=== PATIENT | male | born 1965 | race Caucasian/White ===

== ENCOUNTER 2019-07-02 07:46 | Inpatient (IN) | payer MEDICAID, OTHER ==
[~2019-07-02] VITALS: Ht 160 cm; Wt 64.9 kg
[2019-07-02 07:50] VITALS: BP 152/64
--- NOTE | 2019-07-02 07:50 | NUR ---
Patient ambulated to bed 3. RN evaluating patient at bedside.
--- NOTE | 2019-07-02 08:02 | NUR ---
C/O CONSTANT MID CHEST PAIN X LAST NIGHT. ASSOCIATED WITH SOB, DENIES NAUSEA, VOMITING. STATES HE HAD A SIMILAR EPISODE LAST WEEK. PAIN 11/12. PT CONNECTED TO BEDSIDE MONITOR. BEDRAILS X1, BED LOCKED, AND LOW MED HX: ESRD WITH PERITONIAL DIALYSIS. ANURIA X 3 YEARS. HTN, HYPERCHOL
--- NOTE | 2019-07-02 08:04 | NUR ---
Dr. Arteaga is evaluating the patient at bedside.
[2019-07-02] MEDS ORDERED: NITROGLYCERIN 2% 1 GM PKT TP ONE (08:10)
[2019-07-02] MEDS ORDERED: MORPHINE SULFATE 4 MG/ML SYR IVP ONE (08:10)
[2019-07-02] MEDS ORDERED: ASPIRIN 325 MG TAB PO ONE (08:10)
--- NOTE | 2019-07-02 08:21 | NUR ---
CHEST XRAY AT BEDSIDE
--- NOTE | 2019-07-02 08:23 | NUR ---
PT REPORTS THAT HE IS UNABLE TO RECALL RX MEDICATIONS--PT WILL ATTEMPT TO REMEBER THE NAMES AND INFORM STAFF. UNABLE TO COMPLETE MED REC AT THIS TIME.
--- NOTE | 2019-07-02 08:31 | NUR ---
FINISH SPECIALIST AT BEDSIDE
[2019-07-02 08:39] LABS: BASOPHILS % (AUTO) 0.2 % (0.0-2.0); EOSINOPHILS % (AUTO) 0.2 % (0.0-4.0); HEMOGLOBIN 9.2 g/dL (12.0-18.0); LYMPHOCYTES # (AUTO) 0.7 K/uL (2.0-11.5); LYMPHOCYTES % (AUTO) 5.5 % (20.5-51.1); MEAN CORPUSCULAR HEMOGLOBIN 26 pg (27-31); MEAN CORPUSCULAR HGB CONC 32 g/dL (33-37); MEAN CORPUSCULAR VOLUME 83.3 fL (80-94); MONOCYTES # (AUTO) 1.4 K/uL (0.8-1.0); NEUTROPHILS # (AUTO) 11.4 K/uL (1.8-7.7); NEUTROPHILS % (AUTO) 84.1 % (42.2-75.2); PLATELET COUNT (AUTO) 424 K/uL (140-450); RED BLOOD CELL COUNT(AUTO) 3.49 MIL/uL (4.20-6.10); WHITE BLOOD COUNT (AUTO) 13.6 K/uL (4.8-10.8)
[2019-07-02 08:57] LABS: CHOL/HDL RATIO 4.2 (1-4.5)
[2019-07-02 08:58] LABS: ALBUMIN 2.1 g/dL (3.4-5.0); ANION GAP 17.1 (8-16); CARBON DIOXIDE 21.8 mmol/L (21-32); POTASSIUM 3.9 mmol/L (3.5-5.1); TOTAL BILIRUBIN 0.4 mg/dL (0.0-1.0)
[2019-07-02 09:03] LABS: CREATININE 5.3 mg/dL (0.6-1.3)
[2019-07-02 09:15] LABS: CREATINE KINASE MB 0.6 ng/mL (0-3.6)
--- NOTE | 2019-07-02 10:12 | NUR ---
PT RESTING COMFORTABLY IN BED, AROUSABLE BY VOICE. PT STATES PAIN HAS DECREASED TO 3/10.
[2019-07-02] MEDS ORDERED: ONDANSETRON 4 MG/2 ML VIAL IM/IVP PRN (10:35)
[2019-07-02] MEDS ORDERED: LORazepam 2 MG/ML VIAL IM/IVP PRN (10:35)
[2019-07-02] MEDS ORDERED: DOCUSATE SODIUM 100 MG GELCAP PO PRN (10:35)
[2019-07-02] MEDS ORDERED: ZOLPIDEM 5 MG TAB PO PRN (10:35)
[2019-07-02] MEDS ORDERED: NITROGLYCERIN 0.4 MG TAB SL PRN (10:40)
[2019-07-02] MEDS ORDERED: ATORVASTATIN 20 MG TAB PO SCH (10:57)
[2019-07-02 11:18] LABS: PROTHROMBIN TIME 10.9 secs (10.8-13.4)
[2019-07-02 11:19] LABS: CHOL/HDL RATIO 4.2 (1-4.5); FREE T4 (FREE THYROXINE) 1.07 ng/dL (0.76-1.46); MAGNESIUM 2.3 mg/dL (1.8-2.4); PHOSPHORUS 4.8 mg/dL (2.5-4.9); THYROID STIMULATING HORMONE 2.43 uIU/mL (0.34-3.74)
--- NOTE | 2019-07-02 11:50 | NUR ---
Patient will be admitted to care of DR ARMENTA. Admited to TELE. Will go to room 121B. Belongings list completed. Report to JULES SMITH.
--- NOTE | 2019-07-02 11:55 | NUR ---
RECEIVED BEDSIDE REPORT FROM ER NURSE ASHLEY FOR CONTINUATION OF CARE. VITAL SIGNS WNL, PATIENT PLACED ON TELEMETRY FOR CARDIAC MONITORING. PATIENT REPORTS CHEST PAIN, WILL MEDICATE WITH MORPHINE 2MG. ADMISSION ASSESSMENT IN PROCESS OF COMPLETION. EDUCATED ON THE CALL LIGHT, BED IN LOW POSITION, CALL LIGHT ON AND WITHIN REACH. WILL CONTINUE TO MONITOR.
[2019-07-02] MEDS: MORPHINE SULFATE 2 MG/ML SYR IVP PRN ×2 (12:04→17:05)
[2019-07-02] MEDS: METOPROLOL 25 MG TAB PO SCH ×2 (12:22→20:45)
[2019-07-02] MEDS: LISINOPRIL 5 MG TAB PO SCH (12:23)
[2019-07-02] MEDS: ASPIRIN 81 MG TAB.CHEW PO SCH (12:23)
[2019-07-02] MEDS: NACL 0.9% 1,000 ML IV SCH ×2 (12:38→21:59)
[2019-07-02 13:19] VITALS: BP 120/55
--- NOTE | 2019-07-02 13:45 | NUR ---
PATIENT IS RESTING IN BED, EYES CLOSED, OBSERVED CHEST RISE AND FALL. KENYAN SPEAKING, MEDICATED WITH MORPHINE FOR PAIN 11/12, NOW SLEEPING. ATE 10% OF LUNCH, MRSA NARES SWAB COMPLETED AND SENT TO LAB. NS RUNNING AT 100 ML/HR. TOLERATING WELL. BLOOD PRESSURE MEDICATION ADMINISTERED, TOLERATED WELL. CONCERNS ADDRESSED. BED IN LOW POSITION, CALL LIGHT ON AND WITHIN REACH. WILL CONTINUE TO MONITOR.
--- NOTE | 2019-07-02 15:13 | NUR ---
FNS CONSULT FOR MALNUTRITION HAS BEEN RECEIVED BY APRIL. PATIENT WILL BE ASSESSED WITHIN 1-2 DAYS OF ADMISSION. 07/03- TAMMY BRANCH RD
--- NOTE | 2019-07-02 15:21 | NUR ---
USED POPCORN MACHINE OPERATOR PHONE TO EXPLAIN CT ANGIO CHEST TO PATIENT, SERVICE NUMBER: [id number]. PATIENT IS AWARE OF RISKS, EDUCATED ON THE IMPORTANCE OF PROCEDURE. PATIENT SIGNED. CONCERNS ADDRESSED. WILL CONTINUE TO MONITOR.
[2019-07-02 16:00] VITALS: BP 111/61
--- NOTE | 2019-07-02 17:00 | NUR ---
CONTACTED ABIGAIL FROM [facility] REGARDING THE PERITONEAL DIALYSIS ORDERED BY DR. LOZOYA. PER ABIGAIL, SHE WILL BE HERE TONIGHT. NICHOLE ASSIGNED MADE AWARE.
--- NOTE | 2019-07-02 17:05 | NUR ---
LATE ENTRY: MORPHINE 2 MG THAT WAS DOCUMENTED AT 1705 WAS A LATE ENTRY FOR MORPHINE 2 MG THAT WAS ADMINISTERED TO THE PATIENT AT 1545. PHARMACY NOTIFIED, PHARMACY VERIFIED ACCEPTABLE LATE ENTRY. NURSE NOTIFIED. Addendum: 07/02/19 at 1708 by Wei Zuleta RN WRONG PATIENT, DISREGARD
--- NOTE | 2019-07-02 17:15 | NUR ---
PATIENT IS RESTING IN BED, DENIES PAIN AT THIS TIME. NO CONCERNS AT THIS TIME. WILL CONTINUE TO MONITOR.
--- NOTE | 2019-07-02 19:27 | NUR ---
REPORT GIVEN TO NIGHTSHIFT NURSE FOR CONTINUATION OF CARE.
--- NOTE | 2019-07-02 19:30 | NUR ---
ASSUMED CARE OF PATIENT. AWAKE, ALERT AND ORIENTED. NO COMPLAINS. VITAL SIGNS STABLE. CALL LIGHT WITHIN REACH. CARE BOARD UPDATED.
[2019-07-02 20:00] VITALS: BP 98/48
--- NOTE | 2019-07-02 21:00 | NUR ---
BP MEDS HELD, BP-96/48. NO COMPLAINS. CALL LIGHT WITHIN REACH.
--- NOTE | 2019-07-02 22:00 | NUR ---
TO CT DEPARTMENT VIA WHEELCHAIR ACCOMPANIED BY FINANCIAL ACCOUNTING MANAGER.
--- NOTE | 2019-07-02 22:30 | NUR ---
DIALYSIS NURSE AT BEDSIDE TO START PD ORDERED. NO COMPLAINS. CALL LIGHT WITHIN REACH. RESUME DIET ORDERED.
[2019-07-02] MEDS ORDERED: HEPARIN PER PHARMACY MC PRN (22:55)
[2019-07-02] MEDS ORDERED: hePARIN / DEXT 5% PREMIX 250 ML IV SCH (22:55)
--- NOTE | 2019-07-03 00:20 | NUR ---
SPOKE WITH PATERSON PHARMACY, NO HEPARIN BOLUS NEEDED SINCE PATIENT WAS GIVEN HEPARIN 5000 UNITS SUBCUTANEOUS AT 2200. START THE RATE ORDERED PER PHARMACY PROTOCOL.
[2019-07-03] MEDS: hePARIN / DEXT 5% PREMIX 250 ML IV SCH ×2 (00:48→20:50)
[2019-07-03] MEDS: ACETAMINOPHEN 325 MG TAB PO PRN (01:38)
[2019-07-03 01:43] VITALS: BP 108/56
--- NOTE | 2019-07-03 02:03 | NUR ---
TYLENOL GIVEN ORDERED, TEMP-100.5. ASLEEP, EASILY AROUSABLE. NO COMPLAINS. CALL LIGHT WITHIN REACH. PD ONGOING.
--- NOTE | 2019-07-03 04:00 | NUR ---
ASLEEP. NO COMPLAINS. VITAL SIGNS STABLE. AFEBRILE. CALL LIGHT WITHIN REACH. ONGOING PD.
[2019-07-03 05:02] VITALS: BP 96/56
--- NOTE | 2019-07-03 06:57 | NUR ---
LAB AT BEDSIDE TO DRAW BLOOD ORDERED. CALL LIGHT WITHIN REACH. NO COMPLAINS.
--- NOTE | 2019-07-03 07:02 | NUR ---
ENDORSED CARE AT BEDSIDE WITH JULES SMITH, PATIENT IN STABLE CONDITION.
[2019-07-03 07:06] LABS: BASOPHILS % (AUTO) 0.3 % (0.0-2.0); EOSINOPHILS % (AUTO) 0.3 % (0.0-4.0); HEMATOCRIT 24.7 % (36-52); LYMPHOCYTES # (AUTO) 1.3 K/uL (2.0-11.5); LYMPHOCYTES % (AUTO) 10.1 % (20.5-51.1); MEAN CORPUSCULAR HEMOGLOBIN 26 pg (27-31); MEAN CORPUSCULAR HGB CONC 32 g/dL (33-37); MONOCYTES # (AUTO) 1.5 K/uL (0.8-1.0); MONOCYTES % (AUTO) 11.1 % (1.7-9.3); NEUTROPHILS # (AUTO) 10.2 K/uL (1.8-7.7); NEUTROPHILS % (AUTO) 78.2 % (42.2-75.2); PLATELET COUNT (AUTO) 415 K/uL (140-450); RED BLOOD CELL COUNT(AUTO) 3.01 MIL/uL (4.20-6.10); WHITE BLOOD COUNT (AUTO) 13.1 K/uL (4.8-10.8)
--- NOTE | 2019-07-03 07:25 | NUR ---
RECEIVED BEDSIDE SHIFT REPORT FROM GRAIN MIXER NURSE FOR CONTINUATION OF CARE.
[2019-07-03 07:35] LABS: ANION GAP 14.7 (8-16); CARBON DIOXIDE 23.1 mmol/L (21-32); POTASSIUM 4.8 mmol/L (3.5-5.1)
[2019-07-03 07:39] LABS: MAGNESIUM 2.4 mg/dL (1.8-2.4); PHOSPHORUS 6.4 mg/dL (2.5-4.9)
[2019-07-03 08:00] VITALS: BP 115/64
[2019-07-03 08:16] LABS: CREATININE 5.8 mg/dL (0.6-1.3)
--- NOTE | 2019-07-03 08:59 | NUR ---
APTT 57.4, NO CHANGE ON THE HEPARIN DRIP PER PROTOCOL. CHARGE NURSE AWARE. PATIENT IS STABLE, NO SIGNS OF DISTRESS NOTED. PERITONEAL DIALYSIS COMPLETE, APPROXIMATELY 880 ML REMOVED. PATIENT REMAINS AAOX4. WILL CONTINUE TO MONITOR.
[2019-07-03] MEDS: LISINOPRIL 5 MG TAB PO SCH (09:00)
[2019-07-03] MEDS: METOPROLOL 25 MG TAB PO SCH ×2 (09:00→20:17)
[2019-07-03] MEDS: ATORVASTATIN 20 MG TAB PO SCH (09:03)
[2019-07-03] MEDS: ASPIRIN 81 MG TAB.CHEW PO SCH (09:03)
--- NOTE | 2019-07-03 10:44 | NUR ---
SPOKE WITH ELIO-HD NURSE FROM DIALYSIS, NOTIFIED HIM WITH THE PERITONEAL DIALYSIS ORDER. ELIO STATED HE WILL COME BACK TONIGHT TO DO THE DIALYSIS. JULES-SARAH ASSIGNED MADE AWARE.
[2019-07-03] MEDS: CALCIUM ACETATE 667 MG TAB PO SCH ×2 (10:48→17:33)
--- NOTE | 2019-07-03 11:00 | NUR ---
PATIENT IS RESTING IN BED, VISITOR AT BEDSIDE. CALL LIGHT ON AND WITHIN REACH. WILL CONTINUE TO MONITOR. NO SIGNS OF ADVERSE REACTIONS TO HEPARIN DRIP. BED IS IN LOW POSITION. CALL LIGHT ON AND WITHIN REACH. WILL CONTINUE TO MONITOR.
[2019-07-03 12:00] VITALS: BP 119/63
[2019-07-03] MEDS ORDERED: AZITHROMYCIN 250 MG TAB PO SCH (12:00)
[2019-07-03] MEDS: NACL 0.9% 1,000 ML IV SCH (12:36)
--- NOTE | 2019-07-03 14:10 | NUR ---
07/03/19 RD INITIAL ASSESSMENT COMPLETED PLEASE REFER TO NUTRITION ASSESSMENT UNDER CARE ACTIVITY FOR ESTIMATED NUTRITIONAL NEEDS. 1. CONTINUE CARDIAC AND RENAL DIET TOLERATED 2. RECOMMEND NEPHRO-HUNTER ONCE A DAY 3. RECOMMEND NEPRO SHAKE BID 4. RD PROVIDED NUTRITION EDUCATION ON WARFARIN 5. RD TO FOLLOW-UP 3-5 DAYS, MODERATE RISK TAMMY BRANCH RD
[2019-07-03 16:00] VITALS: BP 114/56
--- NOTE | 2019-07-03 16:45 | NUR ---
RECEIVED CALL FROM LAB FOR APTT RESULT OF 60.1, NO CHANGES PER PROTOCOL. PATIENT IS WNL, AAOX4. BED IS IN LOW POSITION, CALL LIGHT ON AND WITHIN REACH. WILL CONTINUE TO MONITOR.
[2019-07-03] MEDS ORDERED: WARFARIN 5 MG TAB PO SCH (17:00)
--- NOTE | 2019-07-03 19:25 | NUR ---
BEDSIDE SHIFT REPORT GIVEN TO FLAME CUTTER NURSE FOR CONTINUATION OF CARE.
--- NOTE | 2019-07-03 19:26 | NUR ---
RECEIVED BEDSIDE REPORT FROM DAY RN. PT IS INDONESIAN SPEAKING. AAOX4. RESPIRATIONS ARE EQUAL AND UNLABORED. LUNG SOUNDS ARE CLEAR. SKIN IS INTACT. IV ON LAC 20G IVF PER ORDERS. PT CURRENTLY ON PD. PT ALSO ON HEPARIN DRIP PER ORDERS. C/C CHEST PAIN. PT DENIES ANY CHEST PAIN AT THIS TIME. POC DISCUSSED WITH PT. WILL CONTINUE TO MONITOR.
[2019-07-03 20:00] VITALS: BP 114/65
--- NOTE | 2019-07-03 20:50 | NUR ---
NEW HEPARIN BAG NOW INFUSING AT 11.7ML/H PT PTT 60.1H THERAPEUTIC LEVEL. ALL SAFETY MEASURES ARE IN PLACE. CALL LIGHT IS WITHIN REACH. WILL CONTINUE TO MONITOR.
[2019-07-03] MEDS: HYDROcodone/APAP 5/325 MG 1 TAB TAB PO PRN (20:57)
--- NOTE | 2019-07-03 22:24 | NUR ---
PATIENT IS RESTING COMFORTABLY IN BED USING CELL PHONE. DENIES ANY PAIN. ALL NEEDS MET AT THIS TIME. CALL LIGHT IS WITHIN REACH. WILL CONTINUE TO MONITOR.
[2019-07-04] VITALS: BP 127/68
--- NOTE | 2019-07-04 | NUR ---
VITAL SIGNS ARE WITHIN NORMAL LIMITS. PT IS SLEEPING COMFORTABLY IN BED WITH EYES CLOSED. CHEST RISE AND FALL NOTED. ALL SAFETY MEASURES ARE IN PLACE. CALL LIGHT IS WITHIN REACH. WILL CONTINUE TO MONITOR.
--- NOTE | 2019-07-04 02:15 | NUR ---
PT IS SLEEPING COMFORTABLY IN BED WITH EYES CLOSED. CHEST RISE AND FALL NOTED. ALL SAFETY MEASURES ARE IN PLACE. CALL LIGHT IS WITHIN REACH. WILL CONTINUE TO MONITOR.
[2019-07-04 04:00] VITALS: BP 132/77
--- NOTE | 2019-07-04 04:00 | NUR ---
VITAL SIGNS ARE WITHIN NORMAL LIMITS. ALL NEEDS MET AT THIS TIME. CALL LIGHT IS WITHIN REACH. WILL CONTINUE TO MONITOR.
[2019-07-04] MEDS: HYDROcodone/APAP 5/325 MG 1 TAB TAB PO PRN (05:03)
--- NOTE | 2019-07-04 05:50 | NUR ---
PERITONEAL DIALYSIS COMPLETE. REMOVED 726CC. PT IS STABLE. NO S.S OF DISTRESS. CALL LIGHT IS WITHIN REACH. WILL CONTINUE TO MONITOR.
[2019-07-04 07:00] LABS: BASOPHILS # (AUTO) 0.1 K/uL (0.00-0.22); BASOPHILS % (AUTO) 0.4 % (0.0-2.0); EOSINOPHILS # (AUTO) 0.1 K/uL (0-0.4); HEMATOCRIT 24.7 % (36-52); HEMOGLOBIN 8.2 g/dL (12.0-18.0); LYMPHOCYTES # (AUTO) 1.1 K/uL (2.0-11.5); LYMPHOCYTES % (AUTO) 9.4 % (20.5-51.1); MEAN CORPUSCULAR HEMOGLOBIN 27 pg (27-31); MEAN CORPUSCULAR HGB CONC 33 g/dL (33-37); MEAN CORPUSCULAR VOLUME 81.6 fL (80-94); MONOCYTES % (AUTO) 8.4 % (1.7-9.3); NEUTROPHILS # (AUTO) 9.2 K/uL (1.8-7.7); NEUTROPHILS % (AUTO) 80.8 % (42.2-75.2); PLATELET COUNT (AUTO) 463 K/uL (140-450); RED BLOOD CELL COUNT(AUTO) 3.03 MIL/uL (4.20-6.10); WHITE BLOOD COUNT (AUTO) 11.4 K/uL (4.8-10.8)
--- NOTE | 2019-07-04 07:12 | NUR ---
GAVE BEDSIDE REPORT TO DAY RN. PT ENDORSED IN STABLE CONDITION.
--- NOTE | 2019-07-04 07:15 | NUR ---
RECEIVED BEDSIDE REPORT FROM NIGHT NURSE. PATIENT IS IN BED, AWAKE, ALERT AND ORIENTED X4. INTRODUCED SELF. NO S/S OF DISTRESS NOTED. IV INTACT AND PATENT TO LEFT AC. BED IN LOW POSITION. SAFETY MEASURES IN PLACE. CALL LIGHT WITHIN REACH.
[2019-07-04 07:32] LABS: ANION GAP 14.5 (8-16); CARBON DIOXIDE 25.3 mmol/L (21-32); POTASSIUM 3.8 mmol/L (3.5-5.1)
[2019-07-04 07:57] LABS: MAGNESIUM 2.2 mg/dL (1.8-2.4); PHOSPHORUS 4.8 mg/dL (2.5-4.9)
[2019-07-04 08:00] VITALS: BP 117/67
[2019-07-04 08:06] LABS: PROTHROMBIN TIME 11.8 secs (10.8-13.4)
[2019-07-04] MEDS: ATORVASTATIN 20 MG TAB PO SCH (08:15)
[2019-07-04] MEDS: LACTOBACILLUS RHAMNOSUS GG 1 EACH CAP PO SCH (08:15)
[2019-07-04] MEDS: ASPIRIN 81 MG TAB.CHEW PO SCH (08:16)
[2019-07-04] MEDS: LISINOPRIL 5 MG TAB PO SCH (08:16)
[2019-07-04] MEDS: CALCIUM ACETATE 667 MG TAB PO SCH ×2 (08:16→17:13)
[2019-07-04] MEDS: METOPROLOL 25 MG TAB PO SCH ×2 (08:17→20:59)
[2019-07-04 08:33] LABS: CREATININE 5.6 mg/dL (0.6-1.3)
[2019-07-04] MEDS: NACL 0.9% 1,000 ML IV SCH ×2 (08:36→14:28)
--- NOTE | 2019-07-04 09:15 | NUR ---
PATIENT AAOX4, RESTING IN BED QUIETLY. PATIENT FINISHED EATING BREAKFAST. DENIES ANY PAIN OR DISCOMFORT AT THIS TIME. NO S/S OF DISTRESS NOTED. SAFETY MEASURES IN PLACE. WILL CONTINUE TO MONITOR. CALL LIGHT WITHIN REACH.
--- NOTE | 2019-07-04 11:45 | NUR ---
DR. SANDRA AT BEDSIDE.
[2019-07-04 12:00] VITALS: BP 128/69
[2019-07-04] MEDS: ACETAMINOPHEN 325 MG TAB PO PRN ×2 (12:00→19:00)
[2019-07-04] MEDS: AZITHROMYCIN 250 MG TAB PO SCH (12:00)
--- NOTE | 2019-07-04 12:00 | NUR ---
PATIENT C/O CONSTIPATION. COLACE GIVEN ORDERED PRN FOR CONSTIPATION. PATIENT AAOX4. FAMILY AT BEDSIDE. MEDICATED FOR 3/10 PAIN WITH TYLENOL. WILL CONTINUE TO MONITOR.
--- NOTE | 2019-07-04 14:00 | NUR ---
PATIENT AAOX4. FAMILY AT BEDSIDE. NO S/S OF DISTRESS NOTED. HEPARIN INFUSING AT 11.7 ML/HR. NO BLEEDING NOTED. DENIES ANY PAIN OR DISCOMFORT AT THIS TIME. CALL LIGHT WITHIN REACH.
[2019-07-04 16:00] VITALS: BP 121/65
--- NOTE | 2019-07-04 16:25 | NUR ---
RECEIVED APTT RESULTS 50.6. PATIENT REMAINS ON THERAPEUTIC LEVEL. PATIENT CONTINUED WITH 11.7ML/HR HEPARIN DRIP PHARMACY PROTOCOL.
[2019-07-04] MEDS: hePARIN / DEXT 5% PREMIX 250 ML IV SCH ×2 (16:45→18:53)
[2019-07-04] MEDS ORDERED: WARFARIN 2.5 MG, WARFARIN 5 MG PO SCH ×2 (17:00)
[2019-07-04] MEDS ORDERED: WARFARIN 2.5 MG TAB ONE (17:10)
[2019-07-04] MEDS ORDERED: WARFARIN 5 MG TAB ONE (17:11)
--- NOTE | 2019-07-04 18:25 | NUR ---
PATIENT IS IN BED, AWAKE, ALERT AND ORIENTED X4. NO S/S OF DISTRESS NOTED. NEEDS MET AT THIS TIME. CALL LIGHT WITHIN REACH.
--- NOTE | 2019-07-04 19:10 | NUR ---
REPORT GIVEN TO SARAH FRANK FOR CONTINUITY OF CARE. PATIENT IN STABLE CONDITION.
--- NOTE | 2019-07-04 19:34 | NUR ---
RECEIVED PATIENT FROM AM SHIFT NURSE IN STABLE CONDITION FOR CONTINUITY OF CARE. RESPIRATIONS EVEN, UNLABORED. NO C/O PAIN. NO S/SX ACUTE DISTRESS. IV SITE NOTED TO LEFT AC 20 GAUGE, HEPARIN INFUSING WELL. CALL LIGHT WITHIN REACH. WILL CONTINUE TO MONITOR.
[2019-07-04 20:00] VITALS: BP 133/70
--- NOTE | 2019-07-04 22:00 | NUR ---
PATIENT AWAKE AND IN STABLE CONDITION. NO C/O PAIN. NO S/SX ACUTE DISTRESS. CALL LIGHT WITHIN REACH. WILL CONTINUE TO MONITOR.
[2019-07-05] VITALS: BP 115/86
--- NOTE | 2019-07-05 00:58 | NUR ---
PATIENT ASLEEP AND IN STABLE CONDITION. HEPARIN CONTINUES TO INFUSE WELL. NO C/O PAIN. NO S/SX ACUTE DISTRESS. CALL LIGHT WITHIN REACH. WILL CONTINUE TO MONITOR.
--- NOTE | 2019-07-05 02:00 | NUR ---
MADE ROUNDS. PATIENT ASLEEP AND IN STABLE CONDITION. NO C/O PAIN. NO S/SX ACUTE DISTRESS. CALL LIGHT WITHIN REACH. WILL CONTINUE TO MONITOR.
[2019-07-05] MEDS: HYDROcodone/APAP 5/325 MG 1 TAB TAB PO PRN (03:34)
--- NOTE | 2019-07-05 03:34 | NUR ---
PATIENT C/O PRESSURE LIKE CHEST PAIN 10/13. MEDICATED ORDERED. CALL LIGHT WITHIN REACH. WILL CONTINUE TO MONITOR.
[2019-07-05 04:00] VITALS: BP 140/62
--- NOTE | 2019-07-05 04:34 | NUR ---
REASSESSED PAIN LEVEL AT 3/10, TOLERABLE FOR PATIENT. NO S/SX ACUTE DISTRESS. CALL LIGHT WITHIN REACH. WILL CONTINUE TO MONITOR.
--- NOTE | 2019-07-05 06:16 | NUR ---
MADE ROUNDS. PATIENT ASLEEP AND IN STABLE CONDITION. NO C/O PAIN. NO S/SX ACUTE DISTRESS. CALL LIGHT WITHIN REACH. WILL CONTINUE TO MONITOR.
[2019-07-05 07:02] LABS: BASOPHILS % (AUTO) 0.5 % (0.0-2.0); EOSINOPHILS # (AUTO) 0.3 K/uL (0-0.4); EOSINOPHILS % (AUTO) 2.9 % (0.0-4.0); HEMATOCRIT 22.9 % (36-52); HEMOGLOBIN 7.5 g/dL (12.0-18.0); LYMPHOCYTES # (AUTO) 1.2 K/uL (2.0-11.5); LYMPHOCYTES % (AUTO) 12.6 % (20.5-51.1); MEAN CORPUSCULAR HEMOGLOBIN 27 pg (27-31); MEAN CORPUSCULAR HGB CONC 33 g/dL (33-37); MEAN CORPUSCULAR VOLUME 81.7 fL (80-94); MONOCYTES # (AUTO) 0.8 K/uL (0.8-1.0); MONOCYTES % (AUTO) 8.7 % (1.7-9.3); NEUTROPHILS # (AUTO) 7.1 K/uL (1.8-7.7); NEUTROPHILS % (AUTO) 75.3 % (42.2-75.2); PLATELET COUNT (AUTO) 437 K/uL (140-450); RED CELL DISTRIBUTION WIDTH 15.3 % (11.6-13.7); WHITE BLOOD COUNT (AUTO) 9.4 K/uL (4.8-10.8)
[2019-07-05 07:04] LABS: ANION GAP 11.8 (8-16); CARBON DIOXIDE 28.3 mmol/L (21-32); POTASSIUM 4.1 mmol/L (3.5-5.1)
[2019-07-05 07:05] LABS: PROTHROMBIN TIME 13.9 secs (10.8-13.4)
--- NOTE | 2019-07-05 07:10 | NUR ---
RECEIVED REPORT FROM NIGHT NURSE. PATIENT IN BED, ASLEEP, EASILY AROUSABLE BY NAME OR TOUCH. SKIN WARM AND DRY TO TOUCH. RESPIRATION EVEN AND UNLABORED. IV INTACT AND PATENT TO LEFT AC. BED IN LOW POSITION. CALL LIGHT WITHIN REACH. PLANS OF CARE DISCUSSED.
[2019-07-05 07:15] LABS: MAGNESIUM 2.4 mg/dL (1.8-2.4); PHOSPHORUS 4.6 mg/dL (2.5-4.9)
[2019-07-05 07:29] LABS: CREATININE 5.7 mg/dL (0.6-1.3)
--- NOTE | 2019-07-05 07:30 | NUR ---
PER HAYES PERITONEAL DIALYSIS OUTPUT: 937 ML.
[2019-07-05] MEDS: hePARIN / DEXT 5% PREMIX 250 ML IV SCH ×2 (07:56→17:23)
[2019-07-05 08:00] VITALS: BP 120/67
[2019-07-05] MEDS: CALCIUM ACETATE 667 MG TAB PO SCH ×2 (08:27→17:15)
[2019-07-05] MEDS: ATORVASTATIN 20 MG TAB PO SCH (08:27)
[2019-07-05] MEDS: ASPIRIN 81 MG TAB.CHEW PO SCH (08:27)
[2019-07-05] MEDS: LACTOBACILLUS RHAMNOSUS GG 1 EACH CAP PO SCH (08:27)
[2019-07-05] MEDS: METOPROLOL 25 MG TAB PO SCH ×2 (08:28→20:33)
[2019-07-05] MEDS: LISINOPRIL 5 MG TAB PO SCH (08:28)
--- NOTE | 2019-07-05 09:00 | NUR ---
PATIENT IS AAOX4. ABLE TO MAKE NEEDS KNOWN. NO S/S OF DISTRESS NOTED. CALL LIGHT WITHIN REACH.
--- NOTE | 2019-07-05 11:00 | NUR ---
ROUNDS MADE. PATIENT AAOX4. PATIENT ON THE PHONE WATCHING A VIDEO. NEEDS MET AT THIS TIME.
[2019-07-05] MEDS ORDERED: RIVA15TA1 PO (11:44)
[2019-07-05 12:00] VITALS: BP 115/73
[2019-07-05] MEDS: AZITHROMYCIN 250 MG TAB PO SCH (12:33)
--- NOTE | 2019-07-05 13:00 | NUR ---
ROUNDS MADE. PATIENT AAOX4. WATCHING TV. HEPARIN INFUSING @ 11.7 ML/HR VIA LEFT AC. NO S/S OF DISTRESS NOTED. NEEDS MET AT THIS TIME. CALL LIGHT WITHIN REACH.
--- NOTE | 2019-07-05 15:00 | NUR ---
ROUNDS MADE. PATIENT AAOX4. HEPARIN INFUSING WELL. NO S/S OF DISTRESS NOTED. CALL LIGHT WITHIN REACH.
[2019-07-05 16:00] VITALS: BP 118/70
[2019-07-05] MEDS ORDERED: WARFARIN 2.5 MG, WARFARIN 5 MG PO SCH ×2 (17:00)
--- NOTE | 2019-07-05 17:00 | NUR ---
ROUNDS MADE. PATIENT AAOX4. PATIENT ON THE PHONE WATCHING A VIDEO. NEEDS MET AT THIS TIME. CALL LIGHT WITHIN REACH. HEPARIN INFUSING WELL.
[2019-07-05] MEDS ORDERED: WARFARIN 2.5 MG TAB ONE (17:11)
[2019-07-05] MEDS ORDERED: WARFARIN 5 MG TAB ONE (17:12)
--- NOTE | 2019-07-05 19:10 | NUR ---
PATIENT IN STABLE CONDITION. WILL ENDORSE TO NIGHT NURSE FOR CONTINUITY OF CARE.
--- NOTE | 2019-07-05 19:15 | NUR ---
RECEIVED PATIENT FROM AM SHIFT NURSE. PATIENT IS LYING IN BED, AWAKE AND ALERT. NO SOB OR DISTRESS NOTED, ON ROOM AIR. IV ACCESS ON RIGHT WRIST 20 GAUGE AND LEFT AC 20 GAUGE. PATENT, INTACT AND INFUSING WELL. BED IN LOW, SAFETY MEASURES IN PLACE. SKIN IS INTACT. INITIAL ASSESSMENT DONE. CALL LIGHT PLACED WITHIN PATIENT REACH. WILL CONTINUE TO MONITOR PATIENT.
[2019-07-05 20:15] VITALS: BP 134/78
--- NOTE | 2019-07-05 22:24 | NUR ---
ROUNDS DONE. VISIBLE CHEST RISE AND FALL NOTED. CALL LIGHT PLACED WITHIN PATIENT REACH. WILL CONTINUE TO MONITOR PATIENT.
[2019-07-06 00:20] VITALS: BP 129/63
--- NOTE | 2019-07-06 00:20 | NUR ---
VITALS TAKEN AT THIS TIME. NO DISTRESS NOTED. WILL CONTINUE TO MONITOR PATIENT.
[2019-07-06] MEDS: NACL 0.9% 1,000 ML IV SCH (01:09)
--- NOTE | 2019-07-06 02:14 | NUR ---
ROUNDS DONE. VISIBLE CHEST RISE AND FALL NOTED. CALL LIGHT WITHIN PATIENT REACH. WILL CONTINUE TO MONITOR PATIENT.
--- NOTE | 2019-07-06 04:01 | NUR ---
VITAL SIGNS TAKEN AT THIS TIME. NO DISTRESS NOTED. CALL LIGHT WITHIN PATIENT REACH. WILL CONTINUE TO MONITOR PATIENT.
[2019-07-06 04:08] LABS: APPEARANCE,URINE CLEAR (CLEAR); BILIRUBIN,URINE NEGATIVE (NEGATIVE); BLOOD, URINE TRACE-I (NEGATIVE); COLOR,URINE YELLOW (YELLOW); LEUKOCYTE ESTERASE ,URINE NEGATIVE (NEGATIVE); NITRITE, URINE NEGATIVE (NEGATIVE); UGLUCOSE 1+ (NEGATIVE)
[2019-07-06 04:10] VITALS: BP 146/74
[2019-07-06 04:28] LABS: BARBITURATE, URINE NEG. ng/ml (NEG <=200); BENZODIAZEPINE, URINE NEG. ng/mL (NEG <=200); CANNABINOID, URINE NEG. ng/mL (NEG <=50); COCAINE, URINE NEG. ng/mL (NEG <=300); OPIATE, URINE NEG. ng/mL (NEG <=2000); PHENCYCLIDINE SCREEN,URINE NEG. ng/mL (NEG <=25)
[2019-07-06 05:06] LABS: WBC,URINE 0-5 /HPF (0-5)
--- NOTE | 2019-07-06 06:15 | NUR ---
PATIENT IN STABLE CONDITION. CALL LIGHT PLACED WITHIN PATIENT REACH. WILL ENDORSE TO AM SHIFT NURSE FOR CONTINUITY OF CARE.
[2019-07-06 06:26] LABS: ANION GAP 11.8 (8-16); POTASSIUM 3.8 mmol/L (3.5-5.1)
[2019-07-06 06:30] LABS: MAGNESIUM 2.5 mg/dL (1.8-2.4); PHOSPHORUS 4.3 mg/dL (2.5-4.9)
[2019-07-06 06:44] LABS: PROTHROMBIN TIME 24.9 secs (10.8-13.4)
[2019-07-06 06:57] LABS: BASOPHILS # (AUTO) 0.1 K/uL (0.00-0.22); BASOPHILS % (AUTO) 1.3 % (0.0-2.0); EOSINOPHILS # (AUTO) 0.4 K/uL (0-0.4); EOSINOPHILS % (AUTO) 4.3 % (0.0-4.0); HEMATOCRIT 23.1 % (36-52); HEMOGLOBIN 7.5 g/dL (12.0-18.0); LYMPHOCYTES # (AUTO) 1.3 K/uL (2.0-11.5); LYMPHOCYTES % (AUTO) 14.7 % (20.5-51.1); MEAN CORPUSCULAR HEMOGLOBIN 27 pg (27-31); MEAN CORPUSCULAR HGB CONC 32 g/dL (33-37); MEAN CORPUSCULAR VOLUME 82.2 fL (80-94); MONOCYTES # (AUTO) 0.7 K/uL (0.8-1.0); MONOCYTES % (AUTO) 8.6 % (1.7-9.3); NEUTROPHILS # (AUTO) 6.1 K/uL (1.8-7.7); NEUTROPHILS % (AUTO) 71.1 % (42.2-75.2); PLATELET COUNT (AUTO) 468 K/uL (140-450); RED BLOOD CELL COUNT(AUTO) 2.81 MIL/uL (4.20-6.10); RED CELL DISTRIBUTION WIDTH 15.4 % (11.6-13.7); WHITE BLOOD COUNT (AUTO) 8.5 K/uL (4.8-10.8)
--- NOTE | 2019-07-06 07:10 | NUR ---
RECEIVED BEDSIDE REPORT FROM DYE EXPERT NURSE, PT IS AWAKE AND ALERT, NO S/S OF ACUTE DISTRESS, NO SOB. PT ON ROOM AIR, SKIN INTACT. TWO IV SITES L AC 20 G INFUSING NS 50 ML/HR, AND R WRIST 20 G INFUSING HEPARIN DRIP. PT IS ON DAILY PERITONEAL DIALYSIS, PER DYE EXPERT NURSE. CALL LIGHT IS WITHIN REACH. WILL CONTINUE TO MONITOR.
[2019-07-06 07:36] LABS: CREATININE 5.6 mg/dL (0.6-1.3)
[2019-07-06 08:00] VITALS: BP 133/66
--- NOTE | 2019-07-06 08:05 | NUR ---
PT'S APTT IS 69.9 FOR 0600 THIS AM, NO CHANGE IN HEPARIN DRIP PER PHARMACY PROTOCOL.
--- NOTE | 2019-07-06 08:27 | NUR ---
PT IS GETTING L KNEE US AT THIS TIME.
[2019-07-06] MEDS: METOPROLOL 25 MG TAB PO SCH (09:00)
--- NOTE | 2019-07-06 09:55 | NUR ---
PERITONEAL DIALYSIS IS FINISHED. 1038 ML FLUID REMOVED.
[2019-07-06] MEDS: CALCIUM ACETATE 667 MG TAB PO SCH (10:08)
[2019-07-06] MEDS: LACTOBACILLUS RHAMNOSUS GG 1 EACH CAP PO SCH (10:08)
[2019-07-06] MEDS: ATORVASTATIN 20 MG TAB PO SCH (10:09)
[2019-07-06] MEDS: LISINOPRIL 5 MG TAB PO SCH (10:09)
[2019-07-06] MEDS: ASPIRIN 81 MG TAB.CHEW PO SCH (10:09)
--- NOTE | 2019-07-06 10:13 | NUR ---
AM MEDS ADMINISTERED, PT TOLERATED WELL. HELD THE ORDERED METOPROLOL DUE TO DECREASED HR OF 53.
--- NOTE | 2019-07-06 11:02 | NUR ---
DC PLANN[age] YRS OLD MALE PATIENT WAS ADMITTED FROM HOME WITH A DX OF CHEST PAIN RULE OUT ACS. PT HAS A HX OF HTN, ESRD WITH PERITONEAL DIALYSIS . TROP 0.187, 0.184 BNP 678 LACTIC ACID 5.7 AND 5.6 PT IS ON IVF AND IV ROCEPHIN AND ZITHROMAX PO SEEN BY PULMO DR BERGMAN CONTINUE PERITONEAL DIALYSIS , BREATHING TREATMENT ,BULLET SLUGS INSPECTOR DR ARREAGA RECOMMENDED COUMADIN FOR DVT WILL NEED CLOSE INR MONITORING OUTPT NEEDS REPEAT ECHO OUTPATIENT FOR EFFUSION. DC PLAN TO GO HOME WHEN STABLE CM TO FOLLOW
[2019-07-06] MEDS ORDERED: WARF5TAB1 PO ×2 (11:26→11:42)
[2019-07-06 12:00] VITALS: BP 114/68
[2019-07-06] MEDS: AZITHROMYCIN 250 MG TAB PO SCH (12:27)
[2019-07-06] MEDS ORDERED: ASPI-1205 PO (13:51)
[2019-07-06] MEDS ORDERED: COLC0.6C PO (13:51)
[2019-07-06] MEDS ORDERED: PANT20EC12 PO (13:51)
[2019-07-06] MEDS: hePARIN / DEXT 5% PREMIX 250 ML IV SCH (13:57)
--- NOTE | 2019-07-06 16:00 | NUR ---
PT GIVEN DC INSTRUCTIONS AND EXPLAINED HIS DC PRESCRIPTIONS. PT VERBALIZED UNDERSTANDING. IV SITES AND WRIST BANDS REMOVED. PT LEFT IN STABLE CONDITION WITH ALL HIS BELONGINGS.
[2019-07-06] MEDS ORDERED: WARFARIN 5 MG TAB PO SCH (17:00)
== END 2019-07-06 16:00 | disposition home or self-care (01) | DRG 190 ==
LOC: MED 07:46 → MTU 10:32
PROVIDERS: ADMIT General Practice; ATTEND General Practice
PROC: 3E1M39Z Irrigation of Peritoneal Cavity using Dialysate, Percutaneous Approach (ICD-10-PCS; principal; 2019-07-02)
PROC: 3E1M39Z Irrigation of Peritoneal Cavity using Dialysate, Percutaneous Approach (ICD-10-PCS; 2019-07-03)
PROC: 3E1M39Z Irrigation of Peritoneal Cavity using Dialysate, Percutaneous Approach (ICD-10-PCS; 2019-07-04)
PROC: 3E1M39Z Irrigation of Peritoneal Cavity using Dialysate, Percutaneous Approach (ICD-10-PCS; 2019-07-05)
DX: I21.A1 Myocardial infarction type 2 (principal); E43 Unspecified severe protein-calorie malnutrition; J18.9 Pneumonia, unspecified organism; N18.6 End stage renal disease; I31.3 Pericardial effusion (noninflammatory); I13.2 Hypertensive heart and chronic kidney disease with heart failure and with stage 5 chronic kidney disease, or end stage renal disease; I82.432 Acute embolism and thrombosis of left popliteal vein; I50.43 Acute on chronic combined systolic (congestive) and diastolic (congestive) heart failure; M71.20 Synovial cyst of popliteal space [Baker], unspecified knee; D63.1 Anemia in chronic kidney disease; E78.5 Hyperlipidemia, unspecified; E78.00 Pure hypercholesterolemia, unspecified; Z99.2 Dependence on renal dialysis; Z68.25 Body mass index [BMI] 25.0-25.9, adult; Z79.899 Other long term (current) drug therapy; Z83.3 Family history of diabetes mellitus
CPT/HCPCS: 36415; 71045; 71275; 76536; 80048; 80053; 80305; 81001; 82150; 82550; 82553; 83036; 83690; 83735; 83880; 84100; 84439; 84443; 84484; 85025; 85379; 85610; 85730; 87081; 90935; 93970; 96374; 99285; J0696; J1644; J2270; J7030; J7060; Q0092; Q9967

== ENCOUNTER 2020-11-16 16:30 | Emergency (ER) | payer MEDICAID, OTHER ==
[~2020-11-16] VITALS: Ht 162.6 cm; Wt 68.0 kg
[~2020-11-16 16:30] MED LIST: ASPI-1205 PO; COLC0.6C PO; PANT20EC18 PO; WARF5TAB1 PO
[2020-11-16 16:33] VITALS: BP 138/87
--- NOTE | 2020-11-16 16:33 | NUR ---
to bed ambulatory
--- NOTE | 2020-11-16 16:48 | NUR ---
Patient is a 55 y/o male, A*&O x4 c/o rash x2 weeks that is getting worse. Per patient, saw director social who prescribed Fluocinonide and Zyrtec which made the rash worse. Patient states that the rash is now all over his body. PMH: hypothyroid Rx: Euthyrox, Vit D3 NKA
--- NOTE | 2020-11-16 16:51 | NUR ---
Dr. Zendejas at the bedside evaluating patient.
[2020-11-16] MEDS ORDERED: KEN.1O TP (17:07)
[2020-11-16] MEDS ORDERED: CLOT1CRE83 TP (17:07)
[2020-11-16] MEDS ORDERED: PRED20TA5 PO (17:07)
[2020-11-16 17:15] VITALS: BP 138/87
--- NOTE | 2020-11-16 17:15 | NUR ---
Patient discharged with v/s stable. Written and verbal after care instructions given and explained. Patient alert, oriented and verbalized understanding of instructions. Ambulatory with steady gait. All questions addressed prior to discharge. ID band removed. Patient advised to follow up with PMD. Rx of Clotrimazole, Triamcinolone, Prednisone given. Patient educated on indication of medication including possible reaction and side effects. Opportunity to ask questions provided and answered.
== END 2020-11-16 17:15 | disposition home or self-care (01) ==
LOC: MED 16:30
DX: B35.9 Dermatophytosis, unspecified (principal); E07.9 Disorder of thyroid, unspecified; I12.0 Hypertensive chronic kidney disease with stage 5 chronic kidney disease or end stage renal disease; Z79.899 Other long term (current) drug therapy; Z79.82 Long term (current) use of aspirin
CPT/HCPCS: 99283

== ENCOUNTER 2020-11-22 06:10 | Observation (INO) | payer MEDICAID, OTHER ==
[~2020-11-22] VITALS: Ht 160 cm; Wt 70.8 kg
[~2020-11-22 06:10] MED LIST changes: +CLOT1CRE83 TP; +KEN.1O TP; +PRED20TA5 PO
[2020-11-22 06:18] VITALS: BP 145/89
--- NOTE | 2020-11-22 06:23 | NUR ---
PT TAKEN TO BED 2
--- NOTE | 2020-11-22 06:45 | NUR ---
55 YO/M BIB self w CO DIZZYNESS X2 DAYS AND FEELING LIKE HIS LEGS ARE SWOLLEN. PATIENT ALSO REPORTS WELT RASH TO ABDOMEN X2 WEEKS. PATIENT REPORTS SLIGHT SOB X2 DAYS. PATIENT DENIES CHEST PAIN, N/V/D, VISION OR HEARING PROBLEMS. PATIENT PRESENTS AOX4, PERRL, S1S2 PRESENT, +2 PITTING EDEMA TO BILATERAL LOWER EXTREMITIES. LUNG SOUNDS CLEAR THROUGHOUT, BREATHING EVEN AND UNLABORED. PATIENT LAYING IN BED, LOCKED IN LOWEST POSITION, X1 SIDERAIL UP. NAD NOTED, WILL CONTINUE TO MONITOR. PMH: HTN, PERITONEAL DIALYSIS DAILY NKA
--- NOTE | 2020-11-22 06:47 | NUR ---
Dr. Alberts examining patient.
--- NOTE | 2020-11-22 06:55 | NUR ---
PT MOVED TO ER BED 7
--- NOTE | 2020-11-22 06:55 | NUR ---
PATIENT AMBULATED FROM BED 4 TO BED 7 W STEADY GAIT.
--- NOTE | 2020-11-22 06:55 | NUR ---
Sita beebe in [facility] - 11/22/20 at 0722 by LEONOR PATIENT AMBULATED FROM BED 4 TO BED 7 W STEADY GAIT.
--- NOTE | 2020-11-22 07:04 | NUR ---
ekg performed at bedside. ekg reads sinus rhythm @ 73
--- NOTE | 2020-11-22 07:07 | NUR ---
PATIENT TAKEN TO CT VIA GURNEY.
--- NOTE | 2020-11-22 07:23 | NUR ---
REPORT RECEIVED FROM PREVIOUS NURSE, TRANSFER OF CARE AT THIS TIME
--- NOTE | 2020-11-22 07:23 | NUR ---
Pt report given to SARAH LOVELL. Transfer of care at this time.
[2020-11-22 08:25] LABS: BASOPHILS # (AUTO) 0.2 K/uL (0.00-0.22); BASOPHILS % (AUTO) 2.3 % (0.0-2.0); EOSINOPHILS # (AUTO) 0.7 K/uL (0-0.4); EOSINOPHILS % (AUTO) 6.8 % (0.0-4.0); HEMATOCRIT 32.8 % (36-52); HEMOGLOBIN 10.6 g/dL (12.0-18.0); LYMPHOCYTES # (AUTO) 0.9 K/uL (2.0-11.5); LYMPHOCYTES % (AUTO) 8.3 % (20.5-51.1); MEAN CORPUSCULAR HEMOGLOBIN 29 pg (27-31); MEAN CORPUSCULAR HGB CONC 32 g/dL (33-37); MEAN CORPUSCULAR VOLUME 89.1 fL (80-94); MONOCYTES % (AUTO) 9.8 % (1.7-9.3); NEUTROPHILS # (AUTO) 7.7 K/uL (1.8-7.7); NEUTROPHILS % (AUTO) 72.8 % (42.2-75.2); PLATELET COUNT (AUTO) 177 K/uL (140-450); RED BLOOD CELL COUNT(AUTO) 3.68 MIL/uL (4.20-6.10); RED CELL DISTRIBUTION WIDTH 15.3 % (11.6-13.7); WHITE BLOOD COUNT (AUTO) 10.6 K/uL (4.8-10.8)
[2020-11-22 08:32] LABS: ALBUMIN 2.9 g/dL (3.4-5.0); ANION GAP 13.4 (8-16); CARBON DIOXIDE 25.9 mmol/L (21-32); TOTAL BILIRUBIN 0.7 mg/dL (0.0-1.0)
[2020-11-22 08:40] LABS: CREATININE 6.8 mg/dL (0.6-1.3); POTASSIUM 2.3 mmol/L (3.5-5.1)
--- NOTE | 2020-11-22 08:41 | NUR ---
critical lab values received from [facility] and reported to Dr. Alberts. refer to crit lab ashley tab
[2020-11-22] MEDS ORDERED: ASPIRIN 81 MG TAB.CHEW PO ONE (08:45)
[2020-11-22] MEDS ORDERED: ASPIRIN 81 MG TAB.CHEW ONE (08:48)
[2020-11-22 08:50] LABS: PROTHROMBIN TIME 11.5 secs (10.8-13.4)
--- NOTE | 2020-11-22 09:30 | NUR ---
PT ALERT AND AWAKE, BREATHING EVEN AND UNLABORED. NO DISTRESS NOTED. ALL NEEDS MET AT THIS TIME WILL CONTINUE TO MONITOR
[2020-11-22] MEDS ORDERED: ZOLP5TAB1 PO (09:57)
[2020-11-22] MEDS ORDERED: LEVO150T10 PO (09:57)
[2020-11-22] MEDS ORDERED: CETI10TA73 PO (09:57)
--- NOTE | 2020-11-22 10:31 | NUR ---
Patient will be admitted to care of DR Martinez. Admited to Tele. Will go to room 106B. Belongings list completed. Report to Danette SMITH.
--- NOTE | 2020-11-22 10:39 | NUR ---
RECEIVED REPORT FROM ER. RECEIVED PT FROM ER. PT IS ALERT AND ORIENTED X4. PT LUNG SOUNDS CLEAR BILATERALLY. PT IS ON ROOM AIR. SKIN IS DRY, WARM, AND INTACT. ABD AND BACK RASH NOTED. PT HAS IV AT RIGHT AC, 20G, SALINE LOCK. IV SITE IS CLEAN, DRY, AND PATENT. PT RECEIVES PERITONEAL DIALYSIS DAILY, PERITONEAL PORT LOCATED ON LEFT SIDE, SITE IS CLEAN AND DRY. PT IS AMBULATORY. PT REPORTS NO PAIN OR DIZZINESS AT THIS TIME. VITAL SIGNS ARE STABLE.
--- NOTE | 2020-11-22 10:45 | NUR ---
PT TAKEN TO FLOOR AT THIS TIME
[2020-11-22 11:39] LABS: CREATINE KINASE MB 2.2 ng/mL (0-3.6)
[2020-11-22] MEDS ORDERED: POTASSIUM CHLORIDE 10 MEQ TABER PO SCH (12:42)
[2020-11-22] MEDS: MECLIZINE 25 MG TAB PO SCH ×2 (12:59→17:30)
--- NOTE | 2020-11-22 12:59 | NUR ---
PATIENT POTASSIUM 2.3 PER MD GIVE 40MEQ K-DUR PO. WILL CONTINUE TO MONITOR
[2020-11-22 13:15] VITALS: BP 146/83
--- NOTE | 2020-11-22 14:30 | NUR ---
CHECKED ON PATIENT. PATIENT SLEEPING RESPIRATION EVEN UNLABORED ON ROOM AIR. NO DISTRESS NOTED, WILL CONTINUE TO MONITOR.
[2020-11-22] MEDS: lisinopriL 10 MG TAB PO SCH (15:05)
--- NOTE | 2020-11-22 15:05 | NUR ---
SCHEDULED ZESTRIL GIVEN PER MD ORDER. WILL CONTINUE TO MONITOR
[2020-11-22 16:00] VITALS: BP 131/75
--- NOTE | 2020-11-22 19:25 | NUR ---
ENDORSED PATIENT TO MANAGER FINANCIAL REPORTING FOR CONTINUITY OF CARE
--- NOTE | 2020-11-22 19:26 | NUR ---
RECD. RESTING IN BED, AWAKE, A/OX4. CONVERSING WITH NEPHEW AND NIECE AT THE BEDSIDE. RESPIRATION EVEN AND UNLABORED. IV SALINE LOCK AT THE RIGHT AC G20, PATENT AND INTACT. SAFETY MEASURES ENFORCED. BED IN THE LOWEST POSITION, CALL LIGHT IN REACH. MEDICATIONS FOR THE NIGHT DISCUSSED WITH PATIENT. INSTRUCTED TO CALL NURSE WHEN GETTING OUT OF BED. VERBALIZED UNDERSTANDING. DENIES PAIN 0/10.
[2020-11-22 20:00] VITALS: BP 87/57
--- NOTE | 2020-11-22 20:00 | NUR ---
Patient's Plan of Care was discussed and reviewed with UTILIZATION REVIEWER: EVA OTERO
--- NOTE | 2020-11-22 20:45 | NUR ---
MESSAGED DR. SYLVESTER, PATIENT B/P IS 87/57, HR - 86. ORDERED NS BOLUS OF 250 ML.
[2020-11-22] MEDS ORDERED: NACL 0.9% 500 ML IV SCH (20:55)
--- NOTE | 2020-11-22 22:15 | NUR ---
B/P CHECKED AFTER NS BOLUS, 102/60, HR- 74. PATIENT IS RESTING COMFORTABLY IN BED.
[2020-11-23] VITALS: BP 100/66
--- NOTE | 2020-11-23 | NUR ---
AMBULATED TO BR. GAIT STEADY. HAD MODERATE BM. BACK TO BED, VS STABLE.
--- NOTE | 2020-11-23 02:00 | NUR ---
LYING SUPINE IN BED COVERED WITH BLANKETS, SLEEPING COMFORTABLY.
[2020-11-23 04:00] VITALS: BP 90/47
--- NOTE | 2020-11-23 04:00 | NUR ---
RESTING IN BED, BP TAKEN - 90/47. INSTRUCTED TO CALL NURSE WHEN GETTING OF BED, HE MIGHT FEEL DIZZY. VERBALIZED UNDERSTANDING.
--- NOTE | 2020-11-23 06:00 | NUR ---
ABLE TO SLEEP WELL. NO COMPLAINT OF DIZZINESS DURING THE SHIFT.
[2020-11-23 06:52] LABS: BASOPHILS # (AUTO) 0.1 K/uL (0.00-0.22); BASOPHILS % (AUTO) 0.8 % (0.0-2.0); EOSINOPHILS # (AUTO) 0.8 K/uL (0-0.4); EOSINOPHILS % (AUTO) 8.3 % (0.0-4.0); HEMATOCRIT 32.7 % (36-52); HEMOGLOBIN 10.5 g/dL (12.0-18.0); LYMPHOCYTES # (AUTO) 1.3 K/uL (2.0-11.5); LYMPHOCYTES % (AUTO) 12.4 % (20.5-51.1); MEAN CORPUSCULAR HEMOGLOBIN 29 pg (27-31); MEAN CORPUSCULAR HGB CONC 32 g/dL (33-37); MEAN CORPUSCULAR VOLUME 90.2 fL (80-94); MONOCYTES # (AUTO) 1.1 K/uL (0.8-1.0); MONOCYTES % (AUTO) 11.1 % (1.7-9.3); NEUTROPHILS # (AUTO) 6.9 K/uL (1.8-7.7); NEUTROPHILS % (AUTO) 67.4 % (42.2-75.2); PLATELET COUNT (AUTO) 182 K/uL (140-450); RED BLOOD CELL COUNT(AUTO) 3.62 MIL/uL (4.20-6.10); RED CELL DISTRIBUTION WIDTH 15.1 % (11.6-13.7); WHITE BLOOD COUNT (AUTO) 10.2 K/uL (4.8-10.8)
[2020-11-23 07:02] LABS: ALBUMIN 2.3 g/dL (3.4-5.0); ANION GAP 14.9 (8-16); TOTAL BILIRUBIN 0.5 mg/dL (0.0-1.0)
[2020-11-23 07:06] LABS: POTASSIUM 2.9 mmol/L (3.5-5.1)
[2020-11-23 07:07] LABS: CREATININE 7.4 mg/dL (0.6-1.3)
--- NOTE | 2020-11-23 07:25 | NUR ---
ENDORSED TO AM SHIFT NURSE FOR CONTINUITY OF CARE.
--- NOTE | 2020-11-23 07:25 | NUR ---
RECEIVED BEDSIDE REPORT FROM DOT COMPLIANCE MANAGER NURSE. PATIENT SUPINE IN BED, WITH GENERAL ASSEMBLER AT BEDSIDE PERFORMING ECHOCARDIOGRAM. AWAKE, ANSWERS TO NAME, ABLE TO MAKE NEEDS KNOWN. BREATHING EVEN AND UNLABORED, NO SIGNS OF ACUTE DISTRESS NOTED ON RA. R AC 20G SL. SAFETY MEASURES IN PLACE.
[2020-11-23 08:00] VITALS: BP 90/49
--- NOTE | 2020-11-23 08:56 | NUR ---
PATIENT HAS BEEN SCREENED AND CATEGORIZED MODERATE NUTRITION RISK. PATIENT WILL BE SEEN WITHIN 3-5 DAYS OF ADMISSION. 11/24/20 11/26/[address]
[2020-11-23] MEDS ORDERED: ASPIRIN 325 MG TAB PO SCH (09:00)
[2020-11-23] MEDS ORDERED: ASPIRIN 81 MG TAB.CHEW PO SCH (09:00)
[2020-11-23] MEDS: lisinopriL 10 MG TAB PO SCH (09:00)
--- NOTE | 2020-11-23 10:00 | NUR ---
ADMINISTERED SCHEDULED MEDS PER MD ORDER, BP MED HELD DUE TO TRENDING LOW BP. MED EDUCATION PROVIDED, REINFORCEMENT NEEDED. PATIENT TOLERATED WELL WITH SIPS OF WATER, NO SIGNS OF ACUTE DISTRESS NOTED.
[2020-11-23] MEDS: MECLIZINE 25 MG TAB PO SCH ×2 (10:13→12:04)
[2020-11-23 10:16] LABS: CREATINE KINASE MB 1.4 ng/mL (0-3.6)
[2020-11-23] MEDS ORDERED: MECL-231 PO (11:27)
[2020-11-23 12:00] VITALS: BP 106/53
[2020-11-23] MEDS ORDERED: POTASSIUM CHLORIDE 10 MEQ TABER PO SCH (12:00)
--- NOTE | 2020-11-23 12:08 | NUR ---
ADMINISTERED SCHEDULED MEDS PER MD ORDER. MED EDUCATION PROVIDED, PATIENT VERBALIZES UNDERSTANDING. TOLERATED WELL WITH SIPS OF WATER, NO SIGNS OF ACUTE DISTRESS NOTED.
--- NOTE | 2020-11-23 14:11 | NUR ---
DC PLANNING: PCP FOLLOW UP APPOINTMENT MADE WITH DR ADDISON FLORES ON Saturday11/28/20 AT 3:30 PM THE ADDRESS [address] [facility] [place] [id number] PHONE # [phone] . APPOINTMENT REMINDER GIVEN TO PATIENT. CM TO FOLLOW
--- NOTE | 2020-11-23 14:30 | NUR ---
PATIENT DISCHARGED. DISCHARGE INFORMATION AND TEACHING PROVIDED: S/S TO WATCH FOR AND NOTIFY MD OR PRESENT BACK TO ED. IV REMOVED, CATHETER INTACT. PATIENT WHEELED OUT TO PRIVATE VEHICLE. DC VITALS: TEMP 97.7, BP 100/61, HR 77, RR 18, SPO2 95%.
[2020-11-24] MEDS ORDERED: POTASSIUM CHLORIDE 10 MEQ TABER PO SCH (09:00)
== END 2020-11-23 14:30 | disposition home or self-care (01) ==
LOC: MED 06:10 → MTU 09:46
PROVIDERS: ADMIT Internal Medicine; ATTEND Internal Medicine
DX: R42 Dizziness and giddiness (principal); I12.0 Hypertensive chronic kidney disease with stage 5 chronic kidney disease or end stage renal disease; N18.6 End stage renal disease; E87.6 Hypokalemia; G93.0 Cerebral cysts; R77.8 Other specified abnormalities of plasma proteins; Z86.718 Personal history of other venous thrombosis and embolism; Z79.01 Long term (current) use of anticoagulants; Z79.82 Long term (current) use of aspirin; Z79.899 Other long term (current) drug therapy
CPT/HCPCS: 36415; 70450; 71045; 80053; 82550; 82553; 84484; 85025; 85610; 85730; 87081; 93005; 99285; G0378; J8597

== ENCOUNTER 2021-09-23 12:01 | Inpatient (IN) | payer OTHER ==
[~2021-09-23] VITALS: Ht 160 cm; Wt 65.8 kg
--- NOTE | 2021-09-23 | NUR ---
SCHEDULED MEDICATIONS GIVEN. PT TOLERATED WELL. NO DISTRESS NOTED. WILL CONTINUE TO MONITOR. Addendum: 09/24/21 at 0156 by Bharat Tapia RN ERROR.DATE AND TIME SHOULD BE - 09/23/21 2100
[~2021-09-23 12:01] MED LIST changes: -ASPI-1205 PO; -CLOT1CRE83 TP; -COLC0.6C PO; -KEN.1O TP; +LEVO150T10 PO; +MECL-231 PO; -PRED20TA5 PO; -WARF5TAB1 PO
[2021-09-23 12:05] VITALS: BP 128/81
--- NOTE | 2021-09-23 12:11 | NUR ---
Pt ambulated to bed 11
--- NOTE | 2021-09-23 12:25 | NUR ---
56 y/o M BIB self from home c/o SOB, chest discomfort, fatigue x 3 days. Patient A&Ox4, ambulatory, states referred here from Urgent Care for ER evaluation. Pt reports fluids removed from lungs 2 weeks ago from [facility]. States left-sided chest pain, 5/10, discomfort/intermittent, non-radiating. Denies abd pain, fever, chills, nausea, vomiting, dizziness, ROBLEDO, urinary symptoms. Dialysis access LLQ. Lung sounds crackles/diminished right lower lobes. alarm security or surveillance monitor in place. Bed locked in lowest position, side rails x 1. PMH: ESRD- peritoneal dialysis Meds: vitamin D, unable to obtain other meds NKDA Sx: umbilical hernia sx
--- NOTE | 2021-09-23 12:42 | NUR ---
Dr. Mayberry is evaluating pt at bedside
--- NOTE | 2021-09-23 13:01 | NUR ---
Lab at bedside for . Blood sample handed to CPT Vickie.
--- NOTE | 2021-09-23 13:01 | NUR ---
RAD at bedside
--- NOTE | 2021-09-23 13:04 | NUR ---
Nicole beyer swab handed to CPT Vickie at ER bedside
[2021-09-23 13:15] LABS: BASOPHILS # (AUTO) 0.1 K/uL (0.00-0.22); EOSINOPHILS # (AUTO) 0.4 K/uL (0-0.4); EOSINOPHILS % (AUTO) 6.4 % (0.0-4.0); HEMATOCRIT 30.5 % (36-52); HEMOGLOBIN 9.7 g/dL (12.0-18.0); LYMPHOCYTES # (AUTO) 0.8 K/uL (2.0-11.5); LYMPHOCYTES % (AUTO) 11.9 % (20.5-51.1); MEAN CORPUSCULAR HEMOGLOBIN 27 pg (27-31); MEAN CORPUSCULAR HGB CONC 32 g/dL (33-37); MEAN CORPUSCULAR VOLUME 85.8 fL (80-94); MONOCYTES # (AUTO) 0.6 K/uL (0.8-1.0); MONOCYTES % (AUTO) 8.8 % (1.7-9.3); NEUTROPHILS # (AUTO) 4.9 K/uL (1.8-7.7); NEUTROPHILS % (AUTO) 70.9 % (42.2-75.2); PLATELET COUNT (AUTO) 158 K/uL (140-450); RED BLOOD CELL COUNT(AUTO) 3.55 MIL/uL (4.20-6.10); WHITE BLOOD COUNT (AUTO) 6.9 K/uL (4.8-10.8)
[2021-09-23 13:36] LABS: PROTHROMBIN TIME 11.5 secs (10.8-13.4)
[2021-09-23 13:42] LABS: ALBUMIN 2.6 g/dL (3.4-5.0); ANION GAP 18.4 (8-16); CARBON DIOXIDE 24.6 mmol/L (21-32); TOTAL BILIRUBIN 0.5 mg/dL (0.0-1.0)
[2021-09-23 13:45] LABS: CREATININE 13.7 mg/dL (0.6-1.3)
[2021-09-23 13:47] LABS: MAGNESIUM 2.4 mg/dL (1.8-2.4); PHOSPHORUS 7.8 mg/dL (2.5-4.9)
[2021-09-23] MEDS ORDERED: NITROGLYCERIN 0.4 MG TAB SL ONE (14:25)
[2021-09-23] MEDS ORDERED: ASPIRIN 325 MG TAB PO ONE (14:25)
[2021-09-23] MEDS ORDERED: MAG SULF 2000 MG/WATER PREMIX 50 ML IV ONE (14:35)
[2021-09-23] MEDS ORDERED: CALCIUM GLUC 1 GM/50 mL NS BAG 50 ML IV ONE (14:35)
[2021-09-23 15:01] LABS: APPEARANCE,URINE CLEAR (CLEAR); BILIRUBIN,URINE 1+ (NEGATIVE); BLOOD, URINE 3+ (NEGATIVE); COLOR,URINE YELLOW (YELLOW); LEUKOCYTE ESTERASE ,URINE TRACE (NEGATIVE); NITRITE, URINE NEGATIVE (NEGATIVE); PH,URINE 5.5 (5.0-9.0); UGLUCOSE NEGATIVE (NEGATIVE)
[2021-09-23 15:32] LABS: RBC,URINE 20-50 /HPF (0-5); WBC,URINE 0-5 /HPF (0-5)
[2021-09-23 15:34] LABS: URIC ACID CRYSTALS,URINE 0-10 /HPF (None Seen)
[2021-09-23] MEDS ORDERED: HYDROcodone/APAP 5/325 MG 1 TAB TAB PO PRN (15:40)
[2021-09-23] MEDS ORDERED: MAGNESIUM OXIDE 400 MG TAB PO PRN (15:40)
[2021-09-23] MEDS ORDERED: MORPHINE SULFATE 4 MG/ML SYR IVP PRN (15:40)
[2021-09-23] MEDS ORDERED: ACETAMINOPHEN 325 MG TAB PO PRN (15:40)
[2021-09-23] MEDS ORDERED: ONDANSETRON 4 MG/2 ML VIAL IVP PRN (15:40)
[2021-09-23] MEDS ORDERED: MAG SULF 2000 MG/WATER PREMIX 50 ML IV PRN (15:40)
--- NOTE | 2021-09-23 16:20 | NUR ---
Patient will be admitted to care of Dr. Alcantar. Admited to Telemetry. Will go to room 111A. Belongings list completed. Report to SARAH Aceves.
--- NOTE | 2021-09-23 17:03 | NUR ---
RECEIVED ENDORSEMENT FROM ER NURSEROSEMARIE W/ PATIENT IN STABLE CONDITION W/ TROPONIN TREND FROM 324 TO 306, PIV AT BILATERAL FOREARM 20G SALINE LOCK. WILL CONTINUE TO MONITOR
[2021-09-23 17:51] VITALS: BP 122/71
--- NOTE | 2021-09-23 19:28 | NUR ---
ENDORSE PT TOPM SHIFT NURSE W/ PATIENT IN STABLE CONDITION, PIV AT BILATERAL FOREARM 20G SALINE LOCK
--- NOTE | 2021-09-23 19:35 | NUR ---
RECEIVED REPORT FROM AM SHIFT FOR CONTINUITY OF CARE. PT A&O X 4, FRENCH SPEAKING. ON ROOM AIR, WITH BREATHING EQUAL AND UNLABORED. SKIN WARM, DRY AND INTACT. IV ON L FA G 20, FLUSHING WELL. NO S/SX OF DISTRESS NOTED.PT AMBULATORY. FAMILY AT BEDSIDE. ALL PRECAUTIONS IN PLACE. CALL LIGHT WITHIN REACH.WILL CONTINUE TO MONITOR.
[2021-09-23 20:00] VITALS: BP 119/75
[2021-09-23] MEDS ORDERED: POTASSIUM CHLORIDE 10 MEQ TABER PO ONE (21:00)
--- NOTE | 2021-09-23 21:00 | NUR ---
SCHEDULED MEDICATIONS GIVEN. PT TOLERATED WELL. NO DISTRESS NOTED. WILL CONTINUE TO MONITOR.
[2021-09-24] VITALS: BP 115/70
[2021-09-24] MEDS ORDERED: ZOLPIDEM 5 MG TAB PO PRN (00:40)
--- NOTE | 2021-09-24 00:45 | NUR ---
PT COMPLAINS OF HAVING HARD TIME SLEEPING AND WANTED SOME SLEEP MEDICATION. DR ORDERED AMBIEN 5MG PRN.
--- NOTE | 2021-09-24 01:51 | NUR ---
PT ASLEEP.VISIBLE CHEST RISE AND FALL NOTED. NO DISTRESS NOTED. ALL PRECAUTIONS IN PLACE. WILL CONTINUE TO MONITOR.
[2021-09-24 04:00] VITALS: BP 116/67
--- NOTE | 2021-09-24 07:12 | NUR ---
PT IS STABLE. NO ACUTE EVENTS THROUGHOUT THE NIGHT. ALL NEEDS MET.NO S/SX OF DISTRESS NOTED.DENIES PAIN. ALL PRECAUTIONS IN PLACE. CALL LIGHT WITHIN REACH. WILL ENDORSE TO AM SHIFT NURSE.
--- NOTE | 2021-09-24 07:13 | NUR ---
RECEIVED REPORT FROM RF TECHNICIAN NURSE FOR CONTINUITY OF CARE. PT IS SLEEPING EASILY AROUSABLE BY VERBAL STIMULI. RESPIRATIONS EVEN AND UNLABORED AT ROOM AIR. NO DISTRESS NOTED. PT ON TELE MONITOR. IV SITE AT BILATERAL FA G20, SALINE LOCK. DIALYSIS SITE AT LEFT LOWER QUADRANT. CALL LIGHT WITHIN REACH. SAFETY MEASURES IN PLACE. WILL CONTINUE TO MONITOR.
[2021-09-24 08:00] VITALS: BP 107/68
--- NOTE | 2021-09-24 08:00 | NUR ---
GOT REPORT FROM THE NIGHT NURSE, COVERING STEM PROCESSING MACHINE OPERATOR [facility] .KAMERON
[2021-09-24 08:52] LABS: BASOPHILS # (AUTO) 0.1 K/uL (0.00-0.22); BASOPHILS % (AUTO) 1.2 % (0.0-2.0); EOSINOPHILS # (AUTO) 0.5 K/uL (0-0.4); EOSINOPHILS % (AUTO) 8.5 % (0.0-4.0); HEMATOCRIT 29.6 % (36-52); HEMOGLOBIN 9.5 g/dL (12.0-18.0); LYMPHOCYTES # (AUTO) 0.9 K/uL (2.0-11.5); LYMPHOCYTES % (AUTO) 15.5 % (20.5-51.1); MEAN CORPUSCULAR HEMOGLOBIN 27 pg (27-31); MEAN CORPUSCULAR HGB CONC 32 g/dL (33-37); MEAN CORPUSCULAR VOLUME 85.9 fL (80-94); MONOCYTES # (AUTO) 0.6 K/uL (0.8-1.0); MONOCYTES % (AUTO) 9.9 % (1.7-9.3); NEUTROPHILS % (AUTO) 64.9 % (42.2-75.2); PLATELET COUNT (AUTO) 150 K/uL (140-450); RED BLOOD CELL COUNT(AUTO) 3.45 MIL/uL (4.20-6.10); RED CELL DISTRIBUTION WIDTH 14.9 % (11.6-13.7); WHITE BLOOD COUNT (AUTO) 6.1 K/uL (4.8-10.8)
--- NOTE | 2021-09-24 08:56 | NUR ---
ADMINISTERED SCHEDULED HEPARIN. PT TEACHING GIVEN. PT VERBALIZED UNDERSTANDING. PT TOLERATED WELL.
[2021-09-24 10:19] LABS: ALBUMIN 2.4 g/dL (3.4-5.0); ANION GAP 20.1 (8-16); CARBON DIOXIDE 22.4 mmol/L (21-32); MAGNESIUM 2.9 mg/dL (1.8-2.4); POTASSIUM 3.5 mmol/L (3.5-5.1); TOTAL BILIRUBIN 0.5 mg/dL (0.0-1.0)
--- NOTE | 2021-09-24 10:28 | NUR ---
RECEIVED CRITICAL LAB VALUES FROM LAB BUN-92; CREATININE-14.07; CALCIUM-7.5. INFORMED DR HANSEN, AWAITING FOR RESPONSE. PT HAS CONSULT FOR DR HANSEN, FOR PERITONEAL DIALYSIS.
[2021-09-24 10:29] LABS: CREATININE 14.2 mg/dL (0.6-1.3)
[2021-09-24] MEDS ORDERED: POTASSIUM CHLORIDE 10 MEQ TABER PO ONE (10:55)
[2021-09-24] MEDS ORDERED: ECOTRIN 81 MG TABEC PO ONE (11:05)
[2021-09-24] MEDS: FUROSEMIDE 40 MG/4 ML VIAL IVP SCH ×2 (11:36→18:07)
[2021-09-24 12:00] VITALS: BP 118/74
--- NOTE | 2021-09-24 12:30 | NUR ---
DR FISHER AT BEDSIDE, THEN FOLLOWED BY DR BEE. Addendum: 09/24/21 at 1400 by Cassidy Bell LVN ERROR
--- NOTE | 2021-09-24 14:44 | NUR ---
PT IN BED, RESTING. RESPIRATIONS EVEN AND UNLABORED AT ROOM AIR. NO DISTRESS NOTED. NO COMPLAINTS OF PAIN. SAFETY MEASURES IN PLACE. WILL CONTINUE TO MONITOR.
--- NOTE | 2021-09-24 15:53 | NUR ---
WAS ABLE TO CONTACT HAYES. PERITONEAL DIALYSIS BETWEEN 7-8PM.
[2021-09-24 16:00] VITALS: BP 130/73
--- NOTE | 2021-09-24 16:41 | NUR ---
RECEIVED CRITICAL LEVEL FROM LAB. TROPONIN 303.2. TROPONIN TRENDING DOWN.
--- NOTE | 2021-09-24 19:30 | NUR ---
ENDORSED PT TO ZIPPER SETTER NURSE FOR CONTINUITY OF CARE. ALL NEEDS MET THROUGHOUT SHIFT. PT IS STABLE.
--- NOTE | 2021-09-24 19:35 | NUR ---
RECEIVED REPORT FROM AM SHIFT FOR CONTINUITY OF CARE. PT A&O X 4, [place] SPEAKING. ON ROOM AIR, WITH BREATHING EQUAL AND UNLABORED. SKIN WARM, DRY AND INTACT. IV ON L FA AND R FA G 20, FLUSHING WELL. NO S/SX OF DISTRESS NOTED.PT AMBULATORY. PLAN OF CARE DISCUSSED.ALL PRECAUTIONS IN PLACE. CALL LIGHT WITHIN REACH.WILL CONTINUE TO MONITOR.
[2021-09-24 20:00] VITALS: BP 125/70
--- NOTE | 2021-09-24 21:45 | NUR ---
PT UNDERGOING PERITONEAL DIALYSIS. ABIGAIL SENIOR DEVOPS ENGINEER AT BEDSIDE. WILL CONTINUE TO MONITOR.
--- NOTE | 2021-09-24 22:30 | NUR ---
ABIGAIL SAMPLE TAKER OPERATOR INFORMED ME THAT PT WILL UNDERGO DIALYSIS UNTIL 8AM.
[2021-09-25] VITALS: BP 111/67
--- NOTE | 2021-09-25 01:01 | NUR ---
PT ASLEEP.VISIBLE CHEST RISE AND FALL NOTED. NO DISTRESS NOTED. ALL PRECAUTIONS IN PLACE. WILL CONTINUE TO MONITOR.
[2021-09-25 04:00] VITALS: BP 124/66
--- NOTE | 2021-09-25 04:00 | NUR ---
VITAL SIGNS STABLE.PERITONEAL DIALYSIS ONGOING. NO S/SX OF DISTRESS NOTED. ALL PRECAUTIONS IN PLACE.CALL LIGHT WITHIN REACH. WILL CONTINUE TO MONITOR.
--- NOTE | 2021-09-25 05:53 | NUR ---
ARMAND FROM LAB INFORMED ME THAT PATIENT REFUSED BLOOD DRAW. SPOKE TO PATIENT ABOUT THE IMPORTANCE OF BLOOD DRAW TO MONITOR HIS LAB VALUES. ARMAND FROM LAB TOLD ME HE WILL SEND ANOTHER INDY TO TRY AND DRAW PATIENT'S BLOOD.
[2021-09-25] MEDS ORDERED: LEVOTHYROXINE 0.075 MG TAB PO SCH (06:30)
[2021-09-25 06:35] LABS: BASOPHILS # (AUTO) 0.1 K/uL (0.00-0.22); BASOPHILS % (AUTO) 1.2 % (0.0-2.0); EOSINOPHILS # (AUTO) 0.6 K/uL (0-0.4); EOSINOPHILS % (AUTO) 8.9 % (0.0-4.0); HEMOGLOBIN 9.4 g/dL (12.0-18.0); LYMPHOCYTES # (AUTO) 0.9 K/uL (2.0-11.5); LYMPHOCYTES % (AUTO) 14.7 % (20.5-51.1); MEAN CORPUSCULAR HEMOGLOBIN 28 pg (27-31); MEAN CORPUSCULAR HGB CONC 32 g/dL (33-37); MEAN CORPUSCULAR VOLUME 85.5 fL (80-94); MONOCYTES # (AUTO) 0.6 K/uL (0.8-1.0); NEUTROPHILS % (AUTO) 65.2 % (42.2-75.2); PLATELET COUNT (AUTO) 157 K/uL (140-450); RED BLOOD CELL COUNT(AUTO) 3.39 MIL/uL (4.20-6.10); WHITE BLOOD COUNT (AUTO) 6.2 K/uL (4.8-10.8)
[2021-09-25 06:46] LABS: ALBUMIN 2.6 g/dL (3.4-5.0); ANION GAP 16.7 (8-16); CARBON DIOXIDE 24.7 mmol/L (21-32); POTASSIUM 3.4 mmol/L (3.5-5.1); TOTAL BILIRUBIN 0.5 mg/dL (0.0-1.0)
[2021-09-25 06:52] LABS: FREE T4 (FREE THYROXINE) 0.93 ng/dL (0.76-1.46); THYROID STIMULATING HORMONE 8.46 uIU/mL (0.34-3.74)
[2021-09-25 06:53] LABS: CREATININE 13.8 mg/dL (0.6-1.3)
--- NOTE | 2021-09-25 07:30 | NUR ---
RECEIVED BEDSIDE REPORT FROM METAL SLITTER NURSE FOR CONTINUOUS OF CARE, PT RESTING, NO DISTRESS NOTED, IV TO RIGHT AND LEFT FA 20G PATENT INTACT, SL. PT ON PERITONEAL DIALYSIS AT THIS MOMENT, DIALYSIS NURSE WILL COME TODAY AT 8. PT ON ROOM AIR, NO SOB NOTED, INITIAL ASSESSMENT DONE, ALL SAFETY PRECAUTION MET, CALL LIGHT WITHIN REACH, WILL CONTINUE TO MONITOR.
[2021-09-25 08:00] VITALS: BP 119/63
--- NOTE | 2021-09-25 08:38 | NUR ---
PATIENT HAS BEEN SCREENED AND CATEGORIZED MODERATE NUTRITION RISK. PATIENT WILL BE SEEN WITHIN 3-5 DAYS OF ADMISSION. / [address]
[2021-09-25] MEDS ORDERED: ECOTRIN 81 MG TABEC PO SCH (09:00)
--- NOTE | 2021-09-25 09:10 | NUR ---
SECURITY TESTER AT BEDSIDE.
--- NOTE | 2021-09-25 09:30 | NUR ---
DUE MEDICATIONS ADMINISTERED PT TOLERATED WELL, NO DISTRESS NOTED, WILL CONTINUE TO MONITOR.
[2021-09-25] MEDS: FUROSEMIDE 40 MG/4 ML VIAL IVP SCH (09:31)
[2021-09-25 12:00] VITALS: BP 125/72
--- NOTE | 2021-09-25 13:26 | NUR ---
NOTIFIED DR. LOMAS REGARDING PT POTASSIUM 3.4, PER DR TO ORDER 40MEQ POTASSIUM PO. WILL CONTINUE WITH ORDERS.
[2021-09-25] MEDS ORDERED: POTASSIUM CHLORIDE 10 MEQ TABER PO SCH (13:27)
[2021-09-25] MEDS ORDERED: ASPI-1856 PO (13:55)
--- NOTE | 2021-09-25 14:20 | NUR ---
CALLED ABIGAIL REGARDING PT DIALYSIS PORT, PER ABIGAIL SHE DOES NOT HAVE SUPPLY, TO GO TO PT OWN DIALYSIS CLINIC. SPOKE TO PT WHO STATED UNDERSTANDING THAT HE HAS TO GO BACK TO HIS DIALYSIS CLINIC TO GET HIS DIALYSIS PORT CHANGED.
--- NOTE | 2021-09-25 14:45 | NUR ---
DISCHARGE INSTRUCTION GIVEN VIA LEAD ATG DEVELOPER #[id number] ZACH, PT STATED UNDERSTANDING, ALL QUESTIONS ANSWERED, PT SIGNED DC PAPER.
--- NOTE | 2021-09-25 15:00 | NUR ---
PT LEFT UNIT IN STABLE CONDITION, NO DISTRESS NOTED, IV TAKEN OUT BOTH CATHETER INTACT, WRISTBAND TAKEN OFF. PT STATED HE IS GOING TO DRIVE HIS CAR HOME. STATED UNDERSTANDING THAT HE HAS TO GO TO HIS DIALYSIS CLINIC TO GET THE DIALYSIS PORT CHANGED.
--- NOTE | 2021-09-25 15:03 | NUR ---
DC PLANNING: THE PATIENT PRESENTED WITH C/O FATIGUE, CHEST PAIN, EXERTIONAL SOB AND ORTHOPNEA. H/O ESRD WITH PERITONEAL DIALYSIS, HTN, THYROID DISEASE. PATIENT IS S/P THORACENTESIS 2 WEEKS AGO AT [facility]. CXR SHOWS SMALL BILATERAL PLEURAL EFFUSIONS, CR 13.7, BUN 82, TROPONIN 324. CONSULTS WITH CARDIOLOGY AND NEPHROLOGY ORDERED, PATIENT STARTED ON LASIX 40 MG IV BID. ECHO SHOWS EF OF 65-70%, CARDIOLOGY RECOMMENDS K+ REPLACEMENT, LASIX AND ASA. CM SPOKE WITH THE PATIENT AT BEDSIDE AND CONFIRMED HIS ADDRESS AND PHONE NUMBER. THE INTERVIEW WAS CONDUCTED IN [place]ORUBA AND OCCITAN. THE PATIENT LIVES WITH HIS SON IN A GROUND FLOOR APARTMENT. HE HAS NO H/O HOME HEALTH OR DME AND IS INDEPENDENT IN ALL ACTIVITIES. HE HAS BEEN ON PD FOR FOUR YEARS AND DOES IT AT HOME SEVEN DAYS A WEEK. HIS DIALYSIS SUPPLIES ARE DELIVERED MONTHLY FROM A CLINIC IN [place]. HE SEES A ASSOCIATE PROFESSOR OF COUNSELING AT [facility] MONTHLY AND SEES HIS PMD DR VIEIRA NEEDED. HE DRIVES HIMSELF TO ALL APPOINTMENTS AND HAS NO DC NEEDS. [facility] TASTES THAT HE DROVE HIMSELF HERE AND WILL DRIVE HIMSELF HOME. CM WILL FOLLOW.
== END 2021-09-25 15:00 | disposition home or self-care (01) | DRG 190 ==
LOC: MED 12:01 → MTU 15:37
PROVIDERS: ADMIT Hospitalist; ATTEND Hospitalist
DX: I21.4 Non-ST elevation (NSTEMI) myocardial infarction (principal); I50.33 Acute on chronic diastolic (congestive) heart failure; N18.6 End stage renal disease; E83.39 Other disorders of phosphorus metabolism; E11.22 Type 2 diabetes mellitus with diabetic chronic kidney disease; I13.2 Hypertensive heart and chronic kidney disease with heart failure and with stage 5 chronic kidney disease, or end stage renal disease; E87.6 Hypokalemia; E03.9 Hypothyroidism, unspecified; K21.9 Gastro-esophageal reflux disease without esophagitis; E78.5 Hyperlipidemia, unspecified; Z20.822 Contact with and (suspected) exposure to COVID-19; Z99.2 Dependence on renal dialysis
CPT/HCPCS: 36415; 71045; 76604; 80053; 81001; 83605; 83735; 83880; 84100; 84439; 84443; 84484; 85025; 85610; 85730; 87040; 87081; 93005; 96365; 96366; 99285; J0610; J1644; J1940; J3475; Q0092

== ENCOUNTER 2022-01-10 16:20 | Observation (INO) | payer OTHER ==
[~2022-01-10] VITALS: Ht 160 cm; Wt 64.9 kg
[~2022-01-10 16:20] MED LIST changes: +ASPI-1856 PO
[2022-01-10 16:51] VITALS: BP 115/70
--- NOTE | 2022-01-10 19:18 | NUR ---
Dr. Dejesus examining patient.
[2022-01-10] MEDS ORDERED: VANCOMYCIN 1GM/DEXT 5% PREMIX 200 ML IV ONE (19:20)
[2022-01-10] MEDS ORDERED: VANCOMYCIN PER PHARMACY MC PRN (19:20)
[2022-01-10 19:54] LABS: BASOPHILS # (AUTO) 0.1 K/uL (0.00-0.22); BASOPHILS % (AUTO) 0.8 % (0.0-2.0); EOSINOPHILS # (AUTO) 0.2 K/uL (0-0.4); EOSINOPHILS % (AUTO) 1.9 % (0.0-4.0); HEMATOCRIT 35.5 % (36-52); HEMOGLOBIN 11.2 g/dL (12.0-18.0); LYMPHOCYTES # (AUTO) 0.8 K/uL (2.0-11.5); LYMPHOCYTES % (AUTO) 8.6 % (20.5-51.1); MEAN CORPUSCULAR HEMOGLOBIN 27 pg (27-31); MEAN CORPUSCULAR HGB CONC 32 g/dL (33-37); MONOCYTES # (AUTO) 0.9 K/uL (0.8-1.0); NEUTROPHILS # (AUTO) 7.2 K/uL (1.8-7.7); NEUTROPHILS % (AUTO) 78.7 % (42.2-75.2); PLATELET COUNT (AUTO) 211 K/uL (140-450); RED BLOOD CELL COUNT(AUTO) 4.13 MIL/uL (4.20-6.10); RED CELL DISTRIBUTION WIDTH 15.8 % (11.6-13.7); WHITE BLOOD COUNT (AUTO) 9.2 K/uL (4.8-10.8)
[2022-01-10 20:11] LABS: ALBUMIN 2.6 g/dL (3.4-5.0); ANION GAP 18.5 (8-16); CARBON DIOXIDE 26.8 mmol/L (21-32); POTASSIUM 3.3 mmol/L (3.5-5.1); TOTAL BILIRUBIN 0.7 mg/dL (0.0-1.0)
[2022-01-10 20:14] LABS: CREATININE 11.2 mg/dL (0.6-1.3)
--- NOTE | 2022-01-11 00:09 | NUR ---
PT CALLED FROM INSIDE LOBBY AND OUTSIDE, NO REPSONSE FROM PT
--- NOTE | 2022-01-11 00:10 | NUR ---
PTs PERSONAL PHONE CALLED, NO ANSWER
[2022-01-11] MEDS ORDERED: ONDANSETRON 4 MG/2 ML VIAL IVP PRN (00:25)
[2022-01-11] MEDS ORDERED: ACETAMINOPHEN 325 MG TAB PO PRN (00:25)
[2022-01-11] MEDS ORDERED: MORPHINE SULFATE 4 MG/ML SYR IVP PRN (00:25)
[2022-01-11] MEDS ORDERED: HYDROcodone/APAP 5/325 MG 1 TAB TAB PO PRN (00:25)
[2022-01-11] MEDS ORDERED: INSULIN LISPRO SLIDING SCALE 100 UNITS/ML VIAL SUBQ PRN (00:30)
[2022-01-11] MEDS ORDERED: DEXTROSE 50% 50 ML SYR IVP PRN (00:30)
--- NOTE | 2022-01-11 00:35 | NUR ---
PATIENT ELOPED FROM FACILITY. DISCHARGE INSTRUCTIONS NOT GIVEN TO PATIENT. DR. Dejesus and Dr. Alcantar NOTIFIED.
[2022-01-11] MEDS ORDERED: BLOOD GLUCOSE MONITORING 1 DEV DEV FS SCH (07:30)
[2022-01-11] MEDS ORDERED: DOCUSATE SODIUM 100 MG GELCAP PO SCH (09:00)
[2022-01-11] MEDS ORDERED: CALC-1490 PO (15:54)
[2022-01-11] MEDS ORDERED: OMEP20EC11 PO (15:54)
[2022-01-11] MEDS ORDERED: DOCU-299 PO (15:54)
[2022-01-11] MEDS ORDERED: CARV3.12 PO (15:54)
[2022-01-11] MEDS ORDERED: FLUO10CA21 PO (15:54)
[2022-01-11] MEDS ORDERED: LEVO0.083 PO (15:54)
[2022-01-11] MEDS ORDERED: FURO-570 PO (15:54)
[2022-01-11] MEDS ORDERED: SEVE800T6 PO (15:54)
== END 2022-01-11 00:35 | disposition left against medical advice (07) ==
LOC: MED 16:20 → MMU 01-11 00:29
PROVIDERS: ADMIT Internal Medicine; ATTEND Internal Medicine
DX: K65.9 Peritonitis, unspecified (principal); I12.0 Hypertensive chronic kidney disease with stage 5 chronic kidney disease or end stage renal disease; E11.22 Type 2 diabetes mellitus with diabetic chronic kidney disease; N18.6 End stage renal disease; Z99.2 Dependence on renal dialysis; Z79.899 Other long term (current) drug therapy
CPT/HCPCS: 36415; 74176; 80053; 85025; 87040; 99284; G0378; J0696; J3370; J7060

== ENCOUNTER 2022-01-11 13:29 | Inpatient (IN) | payer OTHER ==
[~2022-01-11] VITALS: Ht 160 cm; Wt 64.4 kg
[2022-01-11 13:46] VITALS: BP 104/70
--- NOTE | 2022-01-11 14:07 | NUR ---
PT AMBULATED TO ER BED 4
--- NOTE | 2022-01-11 14:21 | NUR ---
BIBS FROM HOME W C/O INTERMITTENT SHARP LOWER ABD PAIN SINCE THIS MORNING. DENIES N/V/D/FEVER. PT STATES HE DOES HAVE PAIN DURING URINATION. PMH: CARDIAC DISORDERS (UNKNOWN), RD, HYPOTHYROID Addendum: 01/11/22 at 1549 by [email or web address] ESRD on peritoneal dialysis
--- NOTE | 2022-01-11 14:25 | NUR ---
PT PROVIDED URINE
--- NOTE | 2022-01-11 14:53 | NUR ---
ERMD AT BEDSIDE EVALUATING PT
[2022-01-11 15:05] LABS: BASOPHILS % (AUTO) 0.3 % (0.0-2.0); EOSINOPHILS # (AUTO) 0.1 K/uL (0-0.4); EOSINOPHILS % (AUTO) 1.1 % (0.0-4.0); HEMOGLOBIN 10.3 g/dL (12.0-18.0); LYMPHOCYTES # (AUTO) 0.5 K/uL (2.0-11.5); LYMPHOCYTES % (AUTO) 4.9 % (20.5-51.1); MEAN CORPUSCULAR HEMOGLOBIN 28 pg (27-31); MEAN CORPUSCULAR HGB CONC 32 g/dL (33-37); MEAN CORPUSCULAR VOLUME 85.2 fL (80-94); MONOCYTES % (AUTO) 10.8 % (1.7-9.3); NEUTROPHILS # (AUTO) 7.8 K/uL (1.8-7.7); NEUTROPHILS % (AUTO) 82.9 % (42.2-75.2); PLATELET COUNT (AUTO) 191 K/uL (140-450); RED BLOOD CELL COUNT(AUTO) 3.75 MIL/uL (4.20-6.10); RED CELL DISTRIBUTION WIDTH 15.8 % (11.6-13.7); WHITE BLOOD COUNT (AUTO) 9.5 K/uL (4.8-10.8)
--- NOTE | 2022-01-11 15:07 | NUR ---
pt ambulated to restroom
[2022-01-11 15:27] LABS: ALBUMIN 2.3 g/dL (3.4-5.0); ANION GAP 19.1 (8-16); CARBON DIOXIDE 26.2 mmol/L (21-32); POTASSIUM 3.3 mmol/L (3.5-5.1)
[2022-01-11] MEDS ORDERED: OMEP20EC11 PO (15:54)
[2022-01-11] MEDS ORDERED: FLUO10CA21 PO (15:54)
[2022-01-11] MEDS ORDERED: FURO-570 PO (15:54)
[2022-01-11] MEDS ORDERED: DOCU-299 PO (15:54)
[2022-01-11] MEDS ORDERED: CALC-1490 PO (15:54)
[2022-01-11] MEDS ORDERED: CARV3.12 PO (15:54)
[2022-01-11] MEDS ORDERED: SEVE800T6 PO (15:54)
[2022-01-11] MEDS ORDERED: LEVO0.083 PO (15:54)
--- NOTE | 2022-01-11 15:54 | NUR ---
MED REC DONE
[2022-01-11 15:59] LABS: TOTAL BILIRUBIN 0.9 mg/dL (0.0-1.0)
[2022-01-11 16:08] LABS: CREATININE 12.7 mg/dL (0.6-1.3)
--- NOTE | 2022-01-11 18:33 | NUR ---
pepito given to lab
[2022-01-11] MEDS ORDERED: LORazepam 1 MG TAB PO PRN (18:55)
[2022-01-11] MEDS ORDERED: ACETAMINOPHEN 325 MG TAB PO PRN (18:55)
[2022-01-11] MEDS ORDERED: MORPHINE SULFATE 4 MG/ML SYR IVP PRN (18:55)
[2022-01-11] MEDS ORDERED: ONDANSETRON 4 MG/2 ML VIAL IVP PRN (18:55)
--- NOTE | 2022-01-11 19:14 | NUR ---
Pt report given to Harsh. Transfer of care at this time.
--- NOTE | 2022-01-11 19:15 | NUR ---
REPORT GIVEN BY AMY SMITH, ASSUME CARE OF PT IN BED 4 BY BATOOL SMITH, PT C/O ABD PAIN X1 DAY, HX-ERSD WITH PEROTINEAL DIAYLSIS DAILY, LAST DIAYLSIS YESTERDAY, PT ON SOLE LEVELER, RESTING IN BED. DENIES ANY CP OR SOB.
--- NOTE | 2022-01-11 20:05 | NUR ---
Patient will be admitted to care of Dr. Alcantar. Admited to TELE. Will go to room 116. Belongings list completed. Report to SARAH Gamez.
[2022-01-11] MEDS: carvediloL 3.125 MG TAB PO SCH (21:00)
--- NOTE | 2022-01-11 21:01 | NUR ---
Patient transport to TELE/MST unit via gurney with RN and EMT.
[2022-01-11 21:05] VITALS: BP 116/68
--- NOTE | 2022-01-11 21:05 | NUR ---
Patient will be admitted to care of Josesito WOOD MD. Admited to TELE. Will go to room 116A. Belongings list completed. Report to FAB SMITH.
--- NOTE | 2022-01-11 21:15 | NUR ---
RECEIVED REPORT FROM ER NURSE. PATIENT IS AWAKE, ALERT, AND COOPERATIVE. RESPIRATION EVEN UNLABORED ON ROOM AIR. NO DISTRESS. SKIN IS WARM AND DRY. LUNGS SOUNDS CLEAR UPON AUSCULTATION. BOWEL SOUNDS PRESENT IN ALL QUADRANTS. ABDOMEN SOFT AND TENDER TO TOUCH. PERITONEAL DIALYSIS ACCESS NOTED, NO DRAINAGE NOTED. MRSA SCREEN DONE. VITALS WERE TAKEN. ORIENT PATIENT TO ROOM, STAFF, AND CALL LIGHT. ALL SAFETY MEASURES IN PLACE. BED IS AT LOW POSITION CALL LIGHT WITHIN REACH. WILL CONTINUE TO MONITOR.
--- NOTE | 2022-01-11 21:20 | NUR ---
PATIENT REFUSED TO TAKE OFF HIS CLOTHES FOR SKIN ASSESSMENT. EDUCATED AND EXPLAINED THE PURPOSED STILL REFUSED
[2022-01-11] MEDS: ZOLPIDEM 5 MG TAB PO PRN (21:31)
--- NOTE | 2022-01-11 21:45 | NUR ---
ALL SCHEDULED MEDS GIVEN PER ORDER. WILL CONTINUE TO MONITOR
[2022-01-12] VITALS: BP 105/58
--- NOTE | 2022-01-12 01:48 | NUR ---
PATIENT IS HUNGRY, PROVIDED FOOD
--- NOTE | 2022-01-12 03:02 | NUR ---
MADE ROUNDS, PATIENT AWAKE, WATCHING TV. NO DISTRESS NOTED
[2022-01-12 04:00] VITALS: BP 114/63
--- NOTE | 2022-01-12 04:30 | NUR ---
VITALS WERE TAKEN. NO DISTRESS NOTED
[2022-01-12] MEDS ORDERED: SEVELAMER CARBONATE 800 MG TAB PO ONE (06:24)
[2022-01-12] MEDS: LEVOTHYROXINE 0.088 MG TAB PO SCH (06:29)
[2022-01-12] MEDS: SEVELAMER CARBONATE 800 MG TAB PO SCH ×3 (06:31→17:30)
[2022-01-12 07:10] LABS: BASOPHILS # (AUTO) 0.1 K/uL (0.00-0.22); BASOPHILS % (AUTO) 0.5 % (0.0-2.0); EOSINOPHILS # (AUTO) 0.1 K/uL (0-0.4); EOSINOPHILS % (AUTO) 1.2 % (0.0-4.0); HEMATOCRIT 31.8 % (36-52); HEMOGLOBIN 10.2 g/dL (12.0-18.0); LYMPHOCYTES # (AUTO) 0.9 K/uL (2.0-11.5); LYMPHOCYTES % (AUTO) 9.2 % (20.5-51.1); MEAN CORPUSCULAR HEMOGLOBIN 28 pg (27-31); MEAN CORPUSCULAR HGB CONC 32 g/dL (33-37); MEAN CORPUSCULAR VOLUME 86.2 fL (80-94); MONOCYTES # (AUTO) 1.1 K/uL (0.8-1.0); MONOCYTES % (AUTO) 11.4 % (1.7-9.3); NEUTROPHILS # (AUTO) 7.4 K/uL (1.8-7.7); NEUTROPHILS % (AUTO) 77.7 % (42.2-75.2); PLATELET COUNT (AUTO) 178 K/uL (140-450); RED BLOOD CELL COUNT(AUTO) 3.68 MIL/uL (4.20-6.10); RED CELL DISTRIBUTION WIDTH 16.2 % (11.6-13.7); WHITE BLOOD COUNT (AUTO) 9.6 K/uL (4.8-10.8)
--- NOTE | 2022-01-12 07:20 | NUR ---
ENDORSED PATIENT TO DAY SHIFT NURSE FOR CONTINUITY OF CARE
[2022-01-12 07:32] LABS: ALBUMIN 2.1 g/dL (3.4-5.0); ANION GAP 23.7 (8-16); CARBON DIOXIDE 22.8 mmol/L (21-32); MAGNESIUM 2.2 mg/dL (1.8-2.4); POTASSIUM 3.5 mmol/L (3.5-5.1); TOTAL BILIRUBIN 0.7 mg/dL (0.0-1.0)
[2022-01-12 07:49] LABS: CREATININE 13.1 mg/dL (0.6-1.3); PHOSPHORUS 12.1 mg/dL (2.5-4.9)
--- NOTE | 2022-01-12 07:54 | NUR ---
PATIENT HAS BEEN SCREENED AND CATEGORIZED MODERATE NUTRITION RISK. PATIENT WILL BE SEEN WITHIN 3-5 DAYS OF ADMISSION. [address]
--- NOTE | 2022-01-12 08:00 | NUR ---
AWAKE , NOT IN DISTRESS , SO MAD TO FITNESS CLUB MANAGER - BECAUSE HE SAID FITNESS CLUB MANAGER INSTRUCTED HIM TO PULL OUT HIS JACKET JUST TO APPLY THE BP CUFF - HE REFUSED BP TAKING , ON TELE MONITOR .
[2022-01-12] MEDS ORDERED: cefTRIAXone 2,000 MG in DEXTROSE 5% 100 ML IV SCH (09:00)
--- NOTE | 2022-01-12 09:40 | NUR ---
C/O ABDL . PAIN - HE SAID FOOD AGGRAVATES THE PAIN - WILL REFER TO DR. CAN Addendum: 01/12/22 at 1713 by Batsheva Valentine RN PER DR. CAN - PROTONIX TIV - WILL CARRY OUT .
[2022-01-12] MEDS: PANTOPRAZOLE 40 MG INJ VIAL IVP SCH (09:43)
[2022-01-12] MEDS: DOCUSATE SODIUM 100 MG GELCAP PO SCH (10:00)
[2022-01-12] MEDS: FLUoxetine 10 MG CAP PO SCH (10:00)
[2022-01-12] MEDS: FUROSEMIDE 40 MG TAB PO SCH (10:00)
[2022-01-12] MEDS: ECOTRIN 81 MG TABEC PO SCH (10:00)
[2022-01-12] MEDS: carvediloL 3.125 MG TAB PO SCH ×2 (10:00→20:20)
--- NOTE | 2022-01-12 10:00 | NUR ---
RESTING ON BED , NO COMPLAIN MADE , ON TELE MONITOR
[2022-01-12 12:00] VITALS: BP 117/84
--- NOTE | 2022-01-12 14:00 | NUR ---
ROUNDS , RESTING ON BED , NO S/SX OF ACUTE DISTRESS NOTED AT THIS TIME .
[2022-01-12 16:00] VITALS: BP 122/79
[2022-01-12 16:02] LABS: GLUCOSE,BODY FLUID 106 mg/dL
--- NOTE | 2022-01-12 17:03 | NUR ---
WHILE PERITONEAL DISLYSIS ON GOING - PT HIT THE CALL LIGHT , YELLING , SCREAMING - HE SAID SO MUCH PAIN IN HIS ABDOMEN ,HE SAID IT IS NOT USUALLY HAPPEN TO HIM WHEN HE HAS ON DIALYSIS - WILL INFORM THE HEMO DIALYSIS NURSE. Addendum: 01/12/22 at 1705 by Batsheva Valentine RN PER HEMO DIALYSIS NURSE - SHE WILL INFORM DR. HANSEN , AND SHE WILL COME TO SEE THE PT.
--- NOTE | 2022-01-12 17:32 | NUR ---
PT . CAN'T WAIT THE HEMO DIALYSIS NURSE , HE DISCONNECTED THE DIALYSIS FROM DIALYSIS PORT. - WILL INFORM DR Isabel HANSEN ABOUT THE PT'S STATUS . Addendum: 01/12/22 at 1934 by Batsheva Valentine RN PER DR. HANSEN LEAVE THE PT. ALONE , NO DIALYSIS TODAY .
--- NOTE | 2022-01-12 17:48 | NUR ---
PERITONEAL DIALYSIS NURSE AT BEDSIDE .
[2022-01-12 18:07] LABS: APPEARANCE,SPUN,BODY FLUID CLEAR (CLEAR); APPEARANCE,UNSPUN,BODY FLUID HAZY (CLEAR); SPECIMENTYPE,BODY FLUID PERITONEAL
[2022-01-12 18:08] LABS: COLOR,BODY FLUID LT YELLOW (LT YELLOW); POLYNUCLEAR, BODY FLUID 98 %; RBC, BODY FLUID 9 /cu. mm.; TOTAL VOLUME,BODY FLUID 35 mL; WBC, BODY FLUID 108 /cu. mm.
--- NOTE | 2022-01-12 19:14 | NUR ---
ENDORSED - PT - STABLE .
--- NOTE | 2022-01-12 19:20 | NUR ---
RECEIVED REPORT FROM AM RN. PATIENT IS AWAKE,ALERT AND ORIENTED, WALKING AROUND IN THE ROOM WITH STEADY GAIT. DENIES PAIN. DENIES SHORTNESS OF BREATH. SKIN WARM AND DRY TO TOUCH. INSTRUCTED PATIENT TO CALL IF ASSISTANCE IS NEEDED.
[2022-01-12 20:00] VITALS: BP 109/70
--- NOTE | 2022-01-12 20:20 | NUR ---
PATIENT BACK IN BED, DUE MEDICATIONS GIVEN ORDERED. BED IN THE LOWEST AND LOCKED POSITION FOR SAFETY, CALL LIGHT IN REACH.
[2022-01-12] MEDS: ZOLPIDEM 5 MG TAB PO PRN (21:58)
[2022-01-12] MEDS: HYDROcodone/APAP 5/325 MG 1 TAB TAB PO PRN (22:18)
[2022-01-13] VITALS: BP 113/74
--- NOTE | 2022-01-13 00:18 | NUR ---
PATIENT ASLEEP AT THIS TIME. NO S/SX OF PAIN NOR DISCOMFORT. CALL LIGHT IN REACH.
--- NOTE | 2022-01-13 02:29 | NUR ---
PATIENT IS AWAKE, PROVIDED SANDWICH AND APPLE JUICE PER REQUEST.
[2022-01-13 04:00] VITALS: BP 98/65
--- NOTE | 2022-01-13 05:14 | NUR ---
PATIENT IS USING HIS CELLPHONE. DENIES PAIN AT THIS TIME.
[2022-01-13] MEDS: LEVOTHYROXINE 0.088 MG TAB PO SCH (06:14)
[2022-01-13] MEDS: SEVELAMER CARBONATE 800 MG TAB PO SCH ×3 (06:15→17:00)
--- NOTE | 2022-01-13 06:22 | NUR ---
DUE MEDICATIONS GIVEN ORDERED. NO DISTRESS NOTED. ALL NEEDS ATTENDED TO. SAFETY PRECAUTIONS MAINTAINED DURING THE SHIFT, CALL LIGHT REMAINED WITHIN REACH.
--- NOTE | 2022-01-13 07:25 | NUR ---
REPORT GIVEN TO AM RN FOR CONTINUITY OF CARE.
[2022-01-13 07:35] LABS: BASOPHILS % (AUTO) 0.5 % (0.0-2.0); EOSINOPHILS # (AUTO) 0.4 K/uL (0-0.4); EOSINOPHILS % (AUTO) 4.4 % (0.0-4.0); HEMATOCRIT 26.3 % (36-52); HEMOGLOBIN 8.6 g/dL (12.0-18.0); LYMPHOCYTES # (AUTO) 0.6 K/uL (2.0-11.5); LYMPHOCYTES % (AUTO) 7.5 % (20.5-51.1); MEAN CORPUSCULAR HEMOGLOBIN 28 pg (27-31); MEAN CORPUSCULAR HGB CONC 33 g/dL (33-37); MEAN CORPUSCULAR VOLUME 84.8 fL (80-94); MONOCYTES # (AUTO) 0.9 K/uL (0.8-1.0); MONOCYTES % (AUTO) 10.7 % (1.7-9.3); NEUTROPHILS # (AUTO) 6.6 K/uL (1.8-7.7); NEUTROPHILS % (AUTO) 76.9 % (42.2-75.2); PLATELET COUNT (AUTO) 175 K/uL (140-450); RED CELL DISTRIBUTION WIDTH 15.8 % (11.6-13.7); WHITE BLOOD COUNT (AUTO) 8.6 K/uL (4.8-10.8)
[2022-01-13 07:50] LABS: ALBUMIN 1.9 g/dL (3.4-5.0); ANION GAP 22.1 (8-16); CARBON DIOXIDE 22.4 mmol/L (21-32); MAGNESIUM 2.3 mg/dL (1.8-2.4); POTASSIUM 3.5 mmol/L (3.5-5.1); TOTAL BILIRUBIN 0.5 mg/dL (0.0-1.0)
[2022-01-13 07:53] LABS: CREATININE 14.3 mg/dL (0.6-1.3); PHOSPHORUS 12.4 mg/dL (2.5-4.9)
[2022-01-13 08:00] VITALS: BP 90/65
--- NOTE | 2022-01-13 08:00 | NUR ---
RELAYED TO DR. JADE CASPER 14.5 , BUN 94 , PHOSPHORUS 12.4 - WAITING FOR FURTHER ORDER Addendum: 01/13/22 at 0802 by Batsheva Valentine RN DR. HANSEN TEXTBACK "OK"
[2022-01-13] MEDS: carvediloL 3.125 MG TAB PO SCH ×2 (10:00→20:19)
[2022-01-13] MEDS: FUROSEMIDE 40 MG TAB PO SCH (10:00)
[2022-01-13] MEDS: DOCUSATE SODIUM 100 MG GELCAP PO SCH (10:25)
[2022-01-13] MEDS: ECOTRIN 81 MG TABEC PO SCH (10:25)
[2022-01-13] MEDS: FLUoxetine 10 MG CAP PO SCH (10:25)
[2022-01-13] MEDS: PANTOPRAZOLE 40 MG INJ VIAL IVP SCH (10:35)
[2022-01-13 12:00] VITALS: BP 105/67
--- NOTE | 2022-01-13 12:00 | NUR ---
BP RE CHECK 105/66 , HR 75 - NO COMPLAIN MADE .
--- NOTE | 2022-01-13 13:39 | NUR ---
BP RE CHECK - 88/59 - NO COMPLAIN MADE , ON TELE MONITOR - SR , WILL CONT . TO MONITOR . CALL LIGHT WITHIN REACH .
[2022-01-13 16:00] VITALS: BP 136/82
--- NOTE | 2022-01-13 16:30 | NUR ---
BP RE CHECK 128/ 65 , [place] 77 - NO COMPLAIN MADE .
--- NOTE | 2022-01-13 18:00 | NUR ---
ON PERITONEAL DIALYSIS - CALL LIGHT WITHIN REACH . NO COMPLAIN MADE .
--- NOTE | 2022-01-13 19:28 | NUR ---
ENDORSED - PT - STABLE , STILL ON PERITONEAL DIALYSIS .
--- NOTE | 2022-01-13 19:30 | NUR ---
RECEIVED REPORT FROM AM RN. PATIENT IS AWAKE,ALERT AND ORIENTED. ON GOING PERITONEAL DIALYSIS ORDERED, TOLERATING WELL. DENIES PAIN AT THIS TIME. NO ACUTE RESPIRATORY DISTRESS NOTED. SKIN WARM AND DRY TO TOUCH. BED IN THE LOWEST AND LOCKED POSITION FOR SAFETY, CALL LIGHT IN REACH, INSTRUCTED TO CALL IF ASSISTANCE IS NEEDED.
[2022-01-13 20:00] VITALS: BP 116/79
--- NOTE | 2022-01-13 20:19 | NUR ---
DUE MEDICATIONS GIVEN ORDERED, TOLERATED WELL.
[2022-01-13] MEDS ORDERED: LACTULOSE 20 GM/30 ML UDC PO ONE (20:30)
[2022-01-13] MEDS: ZOLPIDEM 5 MG TAB PO PRN (22:31)
[2022-01-14] VITALS: BP 126/80
--- NOTE | 2022-01-14 00:13 | NUR ---
VITAL SIGNS TAKEN AND DOCUMENTED. ON GOING PERITONEAL DIALYSIS.
--- NOTE | 2022-01-14 02:25 | NUR ---
ROUNDING DONE. PATIENT WATCHING TV AT THIS TIME. ONGOING PERITONEAL DIALYSIS ORDERED.
--- NOTE | 2022-01-14 02:55 | NUR ---
DIALYSIS MACHINE KEEPS ON ALARMING, PATIENT WANTS IT TO BE TURNED OFF, CALLED ABIGAIL, DIALYSIS NURSE, INFORMED HER OF WHAT IS GOING ON THE MACHINE, READ TO HER THE THINGS SHOWING ON THE MACHINE, "SLOW FLOW FROM PATIENT." INFORMED HER THAT THERE IS STILL ABOUT 800 ML TO BE DRAINED AND THAT PATIENT WANTS MACHINE TO BE TURNED OFF. PER ABIGAIL OK TO TURN MACHINE OFF, WILL COME IN THE MORNING TO FINISH DRAINING. WITNESSED BY ANOTHER RN, IRISH Bellamy
[2022-01-14 04:00] VITALS: BP 116/70
[2022-01-14] MEDS: HYDROcodone/APAP 5/325 MG 1 TAB TAB PO PRN (04:13)
--- NOTE | 2022-01-14 06:28 | NUR ---
PATIENT IS AWAKE, ALERT AND ORIENTED. NO DISTRESS NOTED. DENIES PAIN AT THIS TIME. ALL NEEDS ATTENDED TO. SAFETY PRECAUTIONS MAINTAINED DURING THE SHIFT, CALL LIGHT REMAINED WITHIN REACH.
[2022-01-14] MEDS: LEVOTHYROXINE 0.088 MG TAB PO SCH (06:31)
[2022-01-14] MEDS: SEVELAMER CARBONATE 800 MG TAB PO SCH ×2 (06:32→12:03)
[2022-01-14 06:50] LABS: BASOPHILS % (AUTO) 0.4 % (0.0-2.0); EOSINOPHILS # (AUTO) 0.3 K/uL (0-0.4); EOSINOPHILS % (AUTO) 3.4 % (0.0-4.0); HEMATOCRIT 32.3 % (36-52); HEMOGLOBIN 10.4 g/dL (12.0-18.0); LYMPHOCYTES # (AUTO) 0.5 K/uL (2.0-11.5); MEAN CORPUSCULAR HEMOGLOBIN 28 pg (27-31); MEAN CORPUSCULAR HGB CONC 32 g/dL (33-37); MEAN CORPUSCULAR VOLUME 85.8 fL (80-94); MONOCYTES # (AUTO) 0.8 K/uL (0.8-1.0); MONOCYTES % (AUTO) 8.2 % (1.7-9.3); NEUTROPHILS # (AUTO) 7.6 K/uL (1.8-7.7); PLATELET COUNT (AUTO) 220 K/uL (140-450); RED BLOOD CELL COUNT(AUTO) 3.76 MIL/uL (4.20-6.10); RED CELL DISTRIBUTION WIDTH 15.8 % (11.6-13.7); WHITE BLOOD COUNT (AUTO) 9.2 K/uL (4.8-10.8)
[2022-01-14 07:04] LABS: ANION GAP 23.3 (8-16); CARBON DIOXIDE 23.1 mmol/L (21-32); POTASSIUM 3.4 mmol/L (3.5-5.1)
[2022-01-14 07:16] LABS: ALBUMIN 2.2 g/dL (3.4-5.0); ANION GAP 23.9 (8-16); CARBON DIOXIDE 22.5 mmol/L (21-32); MAGNESIUM 2.3 mg/dL (1.8-2.4); POTASSIUM 3.4 mmol/L (3.5-5.1); TOTAL BILIRUBIN 0.6 mg/dL (0.0-1.0)
[2022-01-14 07:24] LABS: CREATININE 14.7 mg/dL (0.6-1.3)
[2022-01-14 07:30] LABS: CREATININE 14.6 mg/dL (0.6-1.3); PHOSPHORUS 11.5 mg/dL (2.5-4.9)
[2022-01-14 07:46] LABS: LYMPHOCYTES % (AUTO) 5.6 % (20.5-51.1); NEUTROPHILS % (AUTO) 82.4 % (42.2-75.2)
[2022-01-14 08:00] VITALS: BP 116/79
[2022-01-14] MEDS: DOCUSATE SODIUM 100 MG GELCAP PO SCH (09:32)
[2022-01-14] MEDS: carvediloL 3.125 MG TAB PO SCH (09:32)
[2022-01-14] MEDS: FUROSEMIDE 40 MG TAB PO SCH (09:33)
[2022-01-14] MEDS: FLUoxetine 10 MG CAP PO SCH (09:33)
[2022-01-14] MEDS: ECOTRIN 81 MG TABEC PO SCH (09:33)
[2022-01-14] MEDS: PANTOPRAZOLE 40 MG INJ VIAL IVP SCH (09:34)
[2022-01-14 12:00] VITALS: BP 127/72
[2022-01-14] MEDS ORDERED: VANCOMYCIN PER PHARMACY MC PRN (13:35)
[2022-01-14] MEDS ORDERED: VANCOMYCIN 1,000 MG in DEXTROSE 5% 250 ML IV SCH (14:30)
--- NOTE | 2022-01-14 20:28 | NUR ---
PATIENT ALERT, ORIENTED AND VERBALLY RESPONSIVE AND GABONESE SPEAKING WITH LITTLE UKRAINIAN. DR. HANSEN WAS HERE TO SEE THE PATIENT THIS AFTERNOON AND I WENT IN WITH HIM TO SEE THE PATIENT AND PATIENT TOLD THE DOCTOR THAT HE WOULD NOT WANT TO CONTINUE WITH THE PERITONEAL DIALYSIS TODAY.THE DOCTOR TOLD ME THAT PATIENT DOES NOT LIKE PERITONEAL DIALYSIS AND THAT THEY WILL WORK TO SWITCH PATIENT TO HEMODIALYSIS INSTEAD. THE DOCTOR LEFT. THE DOCTOR LATER CALLED TO ORDER A ONE TIME DOSE OF VANCOMYCIN IVPB 1GM X 1 STAT AND SAID THAT HE WILL RELEASE THE PATIENT ONCE THAT PROPHYLACTIC DOSE IS GIVEN. THE CHARGE NURSE WAS CALLED TO HELP ME WITH THE TORB ORDER OF THE DOCTOR BUT COULD NOT AND I CALLED THE PHARMACIST TO ASSIST. I WENT IN TO THE PATIENT TO EXPLAIN THINGS OUT T O HIM AND HE SAID OK. THE SPECIAL POLICE PROOF SORTER KEPT GOING TO THE PATIENT PERSUADING THE PATIENT TO [facility] IN ORDER TO PUT ME IN TROUBLE SHE TOLD THE PATIENT. I CAME TO THE OUTBOUND SALES PROFESSIONAL TO ANNOUNCE THAT I AM GOING INTO MY PATIENT WITH ISOLATION ROOM AND WILL NOT BE ABLE TO REACH MY PHONE WHILE IN ISOLATION ROOM. PROOF SORTER THE SPECIAL POLICE, ESCORTED THIS PATIENT TO THE [facility] TO GO AND THE OTHER STAFF CALLED THE SECURITY AND THEY STOPPED THE PATIENT FROM [place]. I JOINED THEM AT THE [facility] AND I TRIED WHEN EVENTUALLY I GOT THERE TO TALK THE PATIENT INTO COMING BACK FOR HIS ORDERED ANTIBIOTIC AND HE SAID NO THAT HE IS GOING TO ANOTHER HOSPITAL AND HIS SONE WAS ALREADY HERE TO PICK HIM UP. I THEN EXPLAINED TO THE PATIENT AND HIS SON THAT THEY WILL HAVE TO SIGN THE AGAINST THE MEDICAL FORM AND THEY AGREED. THE SECURITY WERE STILL WITH THE PATIENT AND I CAME BACK TO THE FLOOR, THE HOISTER PRINTED THE FORM. I TOOK SAME TO THE [facility], HE SIGNED, I DISCONTINUED THE IV SITE AND CATHETER WAS INTACT, THE [place] COLLECTED AND PATIENT WAS APOLOGETIC TO ME AND SAID THAT HE DID NOT MEAN TO PUT ME IN TROUBLE AND I TOLD HIM THAT AM NOT IN TROUBLE AND THAT HE WOULD HAVE WAITED FOR HIS ORDERED IV ANTIBIOTIC AND HE THANKED ME AND LEFT WITH HIS SON IN A STABLE CONDITION.
== END 2022-01-14 15:27 | disposition left against medical advice (07) | DRG 248 ==
LOC: MED 13:29 → MTU 18:53
PROVIDERS: ADMIT Hospitalist; ATTEND Hospitalist
PROC: 3E1M39Z Irrigation of Peritoneal Cavity using Dialysate, Percutaneous Approach (ICD-10-PCS; principal; 2022-01-12)
PROC: 3E1M39Z Irrigation of Peritoneal Cavity using Dialysate, Percutaneous Approach (ICD-10-PCS; 2022-01-13)
DX: K65.9 Peritonitis, unspecified (principal); I12.0 Hypertensive chronic kidney disease with stage 5 chronic kidney disease or end stage renal disease; E44.0 Moderate protein-calorie malnutrition; D63.1 Anemia in chronic kidney disease; E83.39 Other disorders of phosphorus metabolism; E87.1 Hypo-osmolality and hyponatremia; N18.6 End stage renal disease; Z20.822 Contact with and (suspected) exposure to COVID-19; E03.9 Hypothyroidism, unspecified; K21.9 Gastro-esophageal reflux disease without esophagitis; Z83.3 Family history of diabetes mellitus; Z79.899 Other long term (current) drug therapy; Z79.82 Long term (current) use of aspirin; E87.6 Hypokalemia
CPT/HCPCS: 36415; 80048; 80053; 82945; 83605; 83735; 84100; 84157; 85025; 87040; 87070; 87075; 87081; 87186; 87205; 89051; 99285; C9113; J0696; J1644; J3370; J7060

== ENCOUNTER 2022-12-28 11:30 | Day surgery (SDC) | payer OTHER ==
[~2022-12-28] VITALS: Ht 157.5 cm; Wt 61.2 kg
[~2022-12-28 11:30] MED LIST changes: +CALC-1490 PO; +CARV3.12 PO; +DOCU-299 PO; +FLUO10CA21 PO; +FURO-570 PO; +LEVO0.083 PO; -LEVO150T10 PO; -MECL-231 PO; +OMEP20EC11 PO; -PANT20EC18 PO; +SEVE800T6 PO
[2022-12-28] MEDS ORDERED: fentaNYL citrate 0.05 MG/ML VIAL ONE (12:55)
[2022-12-28] MEDS ORDERED: MIDAZOLAM 5 MG/5 ML VIAL ONE (12:55)
[2022-12-28] MEDS ORDERED: LIDOCAINE 2% 100 MG/5 ML UJET TP ONE (12:56)
== END 2022-12-28 14:50 | disposition home or self-care (01) ==
LOC: MOR 11:30 → MMU 11:31 → MOR 14:50
PROVIDERS: ATTEND Internal Medicine Gastroenterology
DX: K62.5 Hemorrhage of anus and rectum (principal); K57.30 Diverticulosis of large intestine without perforation or abscess without bleeding; I12.0 Hypertensive chronic kidney disease with stage 5 chronic kidney disease or end stage renal disease; N18.6 End stage renal disease; E03.9 Hypothyroidism, unspecified; Z87.891 Personal history of nicotine dependence; Z99.2 Dependence on renal dialysis; R19.4 Change in bowel habit; Z79.899 Other long term (current) drug therapy
CPT/HCPCS: 45378; J3010; J2250